=== PATIENT | female | born 1965 | race American Indian/Alaskan Native ===

== ENCOUNTER 2017-04-14 18:51 | Inpatient (IN) | payer BC ==
[2017-04-14] MEDS ORDERED: ACYCLOVIR SODIUM 800 MG in SODIUM CHLORIDE 0.9% 250 ML IVPB ONE (20:45)
--- NOTE | 2017-04-14 20:54 | ED ---
Skin/Abscess/FB HPI - General Chief complaint: Skin/Abscess/Foreign Body Stated complaint: poss shingles Time Seen by Provider: 04/14/17 20:19 Source: patient Mode of arrival: ambulatory Limitations: no limitations - History of Present Illness Initial comments: Patient presents with a burning and itching skin rash. The rash is on the right side of her chest. She has taken no medications. She has no fevers or chills. She has no chest pain or back pain or belly pain. Nothing makes the rash better or worse. She is unaware of sick contacts. She has not traveled anywhere. She has no pain or swelling the legs. She has no palpitations. It has been getting worse for 3 days. - Related Data Home Medications Medication Instructions Recorded Confirmed Folic Acid 1 mg PO HS 11/18/14 04/14/17 Methotrexate/Pf [Rasuvo 17.5 17.5 mg SQ WE 11/18/14 04/14/17 mg/0.35 ml Autoinj] Adalimumab [Humira Pen] 40 mg SQ [id number] 04/14/17 04/14/17 Cholecalciferol (Vitamin D3) 2,000 unit PO HS 04/14/17 04/14/17 [Vitamin D3] Ibuprofen [Advil] 200 - 400 mg PO Q6H PRN 04/14/17 04/14/17 Allergies Allergy/AdvReac Type Severity Reaction Status Date / Time etanercept [From Enbrel] Allergy Unknown Verified 04/14/17 20:17 Review of Systems ROS Statement: Those systems with pertinent positive or pertinent negative responses have been documented in the HPI. ROS Other: All systems not noted in ROS Statement are negative. Past Medical History Past Medical History: Rheumatoid Arthritis (RA) History of Any Multi-Drug Resistant Organisms: None Reported Past Surgical History: No Surgical Hx Reported Additional Past Surgical History / Comment(s): Hx-Lupus, Sjogrens, Raynauds Past Psychological History: No Psychological Hx Reported Smoking Status: Former smoker Past Alcohol Use History: None Reported Past Drug Use History: None Reported General Exam Limitations: no limitations General appearance: alert, in no apparent distress Head exam: Present: atraumatic, normocephalic, normal inspection Eye exam: Present: normal appearance, PERRL, EOMI. Absent: scleral icterus, conjunctival injection, periorbital swelling ENT exam: Present: normal exam, mucous membranes moist Neck exam: Present: normal inspection. Absent: tenderness, meningismus, lymphadenopathy Respiratory exam: Present: normal lung sounds bilaterally. Absent: respiratory distress, wheezes, rales, rhonchi, stridor Cardiovascular Exam: Present: regular rate, normal rhythm, normal heart sounds. Absent: systolic murmur, diastolic murmur, rubs, gallop, clicks GI/Abdominal exam: Present: soft, normal bowel sounds. Absent: distended, tenderness, guarding, rebound, rigid Extremities exam: Present: normal inspection, full ROM, normal capillary refill. Absent: tenderness, pedal edema, joint swelling, calf tenderness Back exam: Present: normal inspection Neurological exam: Present: alert, oriented X3, CN II-XII intact Psychiatric exam: Present: normal affect, normal mood Skin exam: Present: warm, dry, intact, normal color, rash Course Vital Signs 04/14/17 04/14/17 20:06 20:27 Temperature 100.6 F H 99.4 F Pulse Rate 94 83 Respiratory 20 18 Rate Blood Pressure 125/65 135/73 O2 Sat by Pulse 100 100 Oximetry Medical Decision Making - Medical Decision Making Patient presents with a rash. Bruce to my examination she has shingles. She has a history of rheumatoid arthritis. She is on immunosuppressive medications. I Do not believe she is appropriate for oral medication. She will require intravenous a cycle here. Therefore she will be admitted to the hospital. Disposition Clinical Impression: Shingles Disposition: ADMITTED IP TO THIS HOSP Condition: Fair Referrals: Harvey Zurita MD [Primary Care Provider] - 1-2 days Time of Disposition: 20:54
[2017-04-14] MEDS ORDERED: traMADol 50 MG TAB PO PRN (20:55)
[2017-04-14] MEDS ORDERED: ONDANSETRON 4 MG/2 ML VIAL IVP PRN (20:55)
[2017-04-14] MEDS ORDERED: MORPHINE SULFATE 4 MG/ML SYRINGE IV PRN (20:55)
[2017-04-14] MEDS ORDERED: NALOXONE 0.4 MG/ML 1 ML VIAL IV PRN (20:55)
[2017-04-14 20:59] LABS: Anisocytosis Slight; Basophils % (A) 1 %; CH 30.1; CHCM 33.5; Eosinophils # (A) 0.3 k/uL (0-0.7); Eosinophils % (A) 6 %; HCT 38.4 % (34.0-46.0); HDW 2.62; HGB 12.5 gm/dL (11.4-16.0); Luc # (Auto) 0.18; Luc % (Auto) 4; Lymphocytes # (A) 0.9 k/uL (1.0-4.8); Lymphocytes % (A) 18 %; MCH 29.6 pg (25.0-35.0); MCHC 32.7 g/dL (31.0-37.0); MCV 90.4 fL (80.0-100.0); Mean Platelet Volume 6.9; Monocytes # (A) 0.5 k/uL (0-1.0); Monocytes % (A) 10 %; Neutrophils # (A) 3.3 k/uL (1.3-7.7); Neutrophils % (A) 63 %; RBC 4.24 m/uL (3.80-5.40); RDW 17.7 % (11.5-15.5); WBC 5.2 k/uL (3.8-10.6); WBC (Perox) 5.66
[2017-04-14 21:11] LABS: ALT 51 U/L (9-52); AST 36 U/L (14-36); Alkaline Phosphatase 58 U/L (38-126); Anion Gap 8 mmol/L; Blood Urea Nitrogen 12 mg/dL (7-17); Calcium 9.3 mg/dL (8.4-10.2); Carbon Dioxide 25 mmol/L (22-30); Chloride 104 mmol/L (98-107); Glucose 88 mg/dL (74-99); Non-African American GFR(MDRD) >60 (>60 ml/min/1.73 sqM); Potassium 4.2 mmol/L (3.5-5.1); Sodium 137 mmol/L (137-145); Total Bilirubin 0.4 mg/dL (0.2-1.3)
[2017-04-14] MEDS ORDERED: SODIUM CHLORIDE 0.9% 500 ML IV ONE (21:21)
[2017-04-15] MEDS: CHOLECALCIFEROL 1,000 UNIT TAB PO SCH ×2 (00:52→20:07)
[2017-04-15] MEDS: FOLIC ACID 1 MG TAB PO SCH ×2 (00:52→20:08)
[2017-04-15] MEDS: FAMOTIDINE 20 MG TAB PO SCH ×4 (00:53→20:08)
[2017-04-15] MEDS: KETOROLAC 30 MG/ML 1 ML VIAL IVP PRN ×3 (00:54→13:39)
[2017-04-15] MEDS: ACYCLOVIR SODIUM 800 MG in SODIUM CHLORIDE 0.9% 250 ML IV SCH ×3 (08:54→23:07)
[2017-04-15] MEDS: ENOXAPARIN 40 MG/0.4 ML SYRINGE SQ SCH (09:09)
--- NOTE | 2017-04-15 17:18 | HP ---
HISTORY AND PHYSICAL DATE OF ADMISSION: 04/14/2017. PRESENTING COMPLAINT: Pain in the right side. DATE OF SERVICE: 04/15/2017 HISTORY OF PRESENTING COMPLAINT: Pleasant 52-year-old patient, Dr. Zurita. Chronic stable medical conditions include rheumatoid arthritis, Sjogren syndrome, Raynaud and interstitial lung disease. The patient follows with , branch service specialist out of the area. The patient was camping and 4 days ago noticed some pain at the bra line on the lower surface going across starting in the right lower back and continued to get worse. Presented to the local urgent care and found rash there compatible with herpes zoster. Because the patient's immunosuppressed state patient was sent in to the hospital to get IV antiviral and further treatment. The patient denies any fever. Pain is present. Small vesicles were present when she came. REVIEW OF SYSTEMS: CONSTITUTIONAL: None. HEENT: None. RESPIRATORY: None. CARDIOVASCULAR: None. GASTROINTESTINAL: None. GENITOURINARY: None. MUSCULOSKELETAL: As above. DERMATOLOGICAL: As above. LYMPHATIC: None. PSYCHIATRY: None. NEUROLOGICAL: None. PAST HISTORY: Rheumatoid arthritis, Sjogren syndrome, Raynaud disease, interstitial lung disease. PAST SURGICAL HISTORY: , bronchoscopy with biopsies, cervical surgery for precancer, VAT for right lower lobe wedge resection, sinus surgery, x1. SOCIAL HISTORY: . The patient smoked for 20 years. Stopped in 2004. Alcohol none. FAMILY HISTORY: Diabetes and father had some heart disease. HOME MEDICATIONS: 1. Progesterone 800 mg q.h.s. 2. Estrace 0.5 mg p.o. q.h.s. 3. Rasuvo 17.5 mg subcu on Friday. 4. Advil 200 to 400 q.6h p.r.n. 5. Folic acid 1 mg q.h.s. 6. Vitamin D3 2000 units q.h.s. 7. Humira 40 mg subcu 14 days. ALLERGIES: ENBREL. PHYSICAL EXAMINATION: Temperature 97.4, pulse 79, respirations 16, blood pressure 108/58, pulse ox 99% on room air. GENERAL APPEARANCE: Average built, BMI 33.1. Sitting up. Not in distress. EYES: Pupils equal. Conjunctivae normal. HEENT: Oral cavity normal. NECK: JVD not raised. Mass not palpable. RESPIRATORY: Effort. Lungs are clear. CARDIOVASCULAR: First and second sounds are normal. No edema. ABDOMEN: Soft, nontender. Liver and spleen not palpable. LYMPHATIC: No lymph nodes palpable in the neck or axillae. PSYCHIATRY: Alert and oriented x3. Mood and affect normal. NEUROLOGICAL: Pupils appear grossly intact. Power and sensation grossly intact. DERMATOLOGICAL: In a linear fashion a rash is present going from the mid back to the front with some areas of drying out vesicles and some areas of healing up present. Local tenderness is present. INVESTIGATIONS: White count 5.2, hemoglobin 12.5, potassium 4.2, BUN and creatinine normal. ASSESSMENT: 1. Acute herpes zoster in a patient who gets immunosuppressants. Because of concern of immunosuppressed state the patient admitted to the hospital to get IV antiviral. 2. Chronic rheumatoid arthritis. 3. Chronic Sjogren syndrome. 4. Raynaud phenomenon. 5. Chronic interstitial lung disease. PLAN: Home medications will be resumed. Will hold off patient's methotrexate for now. Will give at least 24 hours of IV antiviral and see how the patient does and take it from there. Care was discussed with patient. MMODL / IJN: [id number] /
[2017-04-15] MEDS ORDERED: ESTRADIOL 0.5 MG TAB PO SCH (21:00)
[2017-04-15] MEDS ORDERED: PROGESTERONE MICRONIZED 100 MG PO SCH (21:00)
[2017-04-16] MEDS: ACYCLOVIR SODIUM 800 MG in SODIUM CHLORIDE 0.9% 250 ML IV SCH ×2 (05:15→14:37)
[2017-04-16 07:26] VITALS: TEMP 98.7
[2017-04-16] MEDS: ENOXAPARIN 40 MG/0.4 ML SYRINGE SQ SCH (08:25)
[2017-04-16] MEDS: FAMOTIDINE 20 MG TAB PO SCH (08:25)
[2017-04-16 09:00] VITALS: PULSE 88
[2017-04-16] MEDS: KETOROLAC 30 MG/ML 1 ML VIAL IVP PRN (14:09)
[2017-04-16 15:17] VITALS: BP 100/58; RESP 17
--- NOTE | 2017-04-16 19:21 | P.DS ---
Providers Date of admission: 04/14/17 20:55 Expected date of discharge: 04/16/17 Attending physician: Servando Patel Primary care physician: [facility] Course: FINAL DIAGNOSES: -Acute herpes zoster in a patient who gets immunosuppressants -Chronic rheumatoid arthritis. -Chronic Sjogren syndrome -Renal phenomenon. -Chronic interstitial lung disease. HOSPTIAL COURSE: 52-year-old patient who presented to the emergency department after she noticed 4 days ago some pain at her bra line going across her lower back and continue to get worse. Presented to urgent care and rash was found to be compatible with herpes zoster. Patient takes immunosuppressants and was sent to the emergency department for further evaluation and treatment. IV acyclovir initiated and immunosuppressants held. Symptoms improved, patient tolerating her diet, ambulatory in the room and corea ways, last BM prior to admission. Overall patient condition stabilized and is appropriate for discharge. Patient should follow-up with Dr. Shields to restart her methotrexate and Humira. PHYSICAL EXAM: CARDIOVASCULAR: First and second sound noted no edema RESPIRATORY: Respiratory effort normal, lungs clear to auscultation DERMATOLOGIC: Rash is present in a linear fashion growing from the mid back to the front with some areas of drying vesicles and some areas healing up. Local tenderness noted. Patient was seen and examined by nurse practitioner Annemarie Franco in all elements of the case discussed with attending Dr. Patel DISPOSITION: Home to the care of her family. Patient Condition at Discharge: Fair Plan - Discharge Summary New Discharge Prescriptions: New valACYclovir HCL [Valtrex] 1,000 mg PO Q8HR #21 tab Continue Folic Acid 1 mg PO HS Methotrexate/Pf [Rasuvo 17.5 mg/0.35 ml Autoinj] 17.5 mg SQ WE Cholecalciferol (Vitamin D3) [Vitamin D3] 2,000 unit PO HS Adalimumab [Humira Pen] 40 mg SQ [id number] Ibuprofen [Advil] 200 - 400 mg PO Q6H PRN PRN Reason: HEADACHE/PAIN Progesterone, Micronized [Progesterone] 100 mg PO HS Estradiol [Estrace] 0.5 mg PO HS Discharge Medication List Folic Acid 1 mg PO HS 11/18/14 [History] Methotrexate/Pf [Rasuvo 17.5 mg/0.35 ml Autoinj] 17.5 mg SQ WE 11/18/14 [History ] Adalimumab [Humira Pen] 40 mg SQ [id number] 04/14/17 [History] Cholecalciferol (Vitamin D3) [Vitamin D3] 2,000 unit PO HS 04/14/17 [History] Ibuprofen [Advil] 200 - 400 mg PO Q6H PRN 04/14/17 [History] Estradiol [Estrace] 0.5 mg PO HS 04/15/17 [History] Progesterone, Micronized [Progesterone] 100 mg PO HS 04/15/17 [History] valACYclovir HCL [Valtrex] 1,000 mg PO Q8HR #21 tab 04/16/17 [Rx] Follow up Appointment(s)/Referral(s): Harvey Zurita MD [Primary Care Provider] - 04/23/17 12:40 pm Clementine Mayo MD [REFERRING] - 04/24/17 1:00 pm Patient Instructions/Handouts: Valacyclovir (By mouth), Shingles (DC) Activity/Diet/Wound Care/Special Instructions: 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 mayo to check about her methotrexare and humira Discharge Disposition: HOME SELF-CARE
[2017-04-16] MEDS ORDERED: METHOTREXATE SQ SCH (20:57)
--- NOTE | 2017-04-16 23:32 | DS ---
DISCHARGE SUMMARY ATTENDING NOTE: This patient was seen and examined by me. I discussed with my nurse practitioner, Ms. Franco. The patient's herpes zoster on the right side of the abdominal wall is improving. The patient initially received IV acyclovir. No systemic manifestations. Pain is well controlled. Care was discussed with the patient. PHYSICAL EXAMINATION: On examination, the lesions are healing well. they already started drying up. The patient will be discharged home on Valtrex. 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 Care was discussed in detail. MMODL / IJN: [id number] /
[2017-04-28] MEDS ORDERED: ADALIMUMAB 80 MG/1.6 ML KIT SQ SCH (09:00)
== END 2017-04-16 17:40 | disposition home or self-care (01) | DRG 596 ==
LOC: EC 18:51 → 4MS4W 20:55 → 5MS5E 04-15 13:23
PROVIDERS: ADMIT Hospitalist; ATTEND Hospitalist
DX: B02.9 Zoster without complications (principal); J84.9 Interstitial pulmonary disease, unspecified; I73.00 Raynaud's syndrome without gangrene; M06.9 Rheumatoid arthritis, unspecified; M35.00 Sjogren syndrome, unspecified; Z83.3 Family history of diabetes mellitus; Z87.891 Personal history of nicotine dependence; Z79.890 Hormone replacement therapy; Z79.899 Other long term (current) drug therapy
CPT/HCPCS: 36415; 80053; 85025; 87040; 96365; 96366; 96372; 96375; 99284

== ENCOUNTER → 2019-03-08 | Outpatient (CLI) | payer BC ==
--- NOTE | 2019-03-09 11:19 | MM ---
Reason for exam: screening (asymptomatic). Last mammogram was performed 3 years ago. History: Patient is postmenopausal. Family history of premenopausal breast cancer in mother. Physical Findings: A clinical breast exam by your physician is recommended on an annual basis and results should be correlated with mammographic findings. MG 3D Screening Mammo W/Cad Bilateral CC and MLO view(s) were taken. Prior study comparison: February 26, 2016, bilateral MG screening mammo w CAD. October 02, 2011, bilateral digital screening mammo w/CAD. The breast tissue is heterogeneously dense. This may lower the sensitivity of mammography. Finding: There are amorphous, grouped/clustered calcifications in the upper outer quadrant, posterior middle position of the right breast. There is no discrete abnormality. New finding since February 26, 2016. ASSESSMENT: Incomplete: need additional imaging evaluation, BI-RAD 0 RECOMMENDATION: Special view mammogram of the right breast. [facility] will attempt to contact patient to return for supplemental views.
== END | disposition home or self-care (01) ==
LOC: RADMAMWWP 15:28
PROVIDERS: ATTEND Obstetrics & Gynecology
DX: Z12.31 Encounter for screening mammogram for malignant neoplasm of breast (principal)
CPT/HCPCS: 77063; 77067

== ENCOUNTER → 2019-03-17 | Outpatient (CLI) | payer BC ==
--- NOTE | 2019-03-17 14:44 | MM ---
Reason for exam: additional evaluation requested from abnormal screening. Last mammogram was performed less than 1 month ago. History: Patient is postmenopausal. Family history of premenopausal breast cancer in mother at age 50. Taking estrogen beginning at age 52. Physical Findings: Nurse did not find any significant physical abnormalities on exam. MG 3D Work Up W/Cad RT CC with magnification, MLO with magnification, and LM view(s) were taken of the right breast. Prior study comparison: March 08, 2019, bilateral MG 3d screening mammo w/cad. February 26, 2016, bilateral MG screening mammo w CAD. The breast tissue is heterogeneously dense. This may lower the sensitivity of mammography. Finding: There are coarse heterogeneous, grouped/clustered calcifications in the upper outer quadrant, middle position of the right breast. These results were verbally communicated with the patient and result sheet given to the patient on 03/17/19. ASSESSMENT: Suspicious, BI-RAD 4 RECOMMENDATION: Stereotactic core biopsy of the right breast. Called Dr. Leung with mammographic findings and has scheduled an appointment for the patient for 05/06/19 at 10:[address] Le. Biopsy scheduled for 04/16/19 at 10:20. PRELIMINARY REPORT CALLED AND FAXED TO DR. LE ON 03/17/19.
== END | disposition home or self-care (01) ==
LOC: RADMAMWWP 13:30
PROVIDERS: ATTEND Obstetrics & Gynecology
DX: R92.8 Other abnormal and inconclusive findings on diagnostic imaging of breast (principal)
CPT/HCPCS: 77061; 77065

== ENCOUNTER → 2019-04-16 | Day surgery (SDC) | payer BC ==
[2019-04-16 11:08] VITALS: BMI 31.1
[2019-04-16 14:59] VITALS: BP 120/67; PULSE 77; RESP 16; TEMP 98
--- NOTE | 2019-04-18 13:57 | MM ---
EXAMINATION TYPE: MG stereo VAD BX RT DATE OF EXAM: 04/16/2019 COMPARISON: 03/17/2019 mammogram CLINICAL HISTORY: Abnormal mammogram, calcifications TECHNIQUE: Stereotactic guided core biopsy of right breast. FINDINGS: The procedure of stereotactic guided core biopsy was explained to the patient. Benefits, alternatives, and risks were discussed. An informed consent was then obtained. Timeout was performed Calcifications were localized. Calcifications were targeted by radiology. The procedure was performed by radiology. The skin was cleansed in the standard manner. The skin and deeper breast tissue was anesthetized with 1% lidocaine. Additional lidocaine was administered during the procedure in the standard manner. Multiple core samples were obtained. The graft specimen: Specimen radiograph was obtained. Calcifications are within the specimen. Additionally, there is a soft somewhat clear foreign body which was labeled and also submitted with the specimen. The source of this is unclear. Postprocedure mammogram is obtained. The calcifications have been resected. A marker is at the biopsy site. Discharge instructions were discussed with the patient. The patient will follow- up with her physician for results. The patient was discharged in stable condition having tolerated the procedure well. IMPRESSION: 1. Successful core biopsy right breast calcifications. Recommendations: 1. Recommendations are pending pathology results. Pathology Results: Benign RIGHT, BREAST, NEEDLE CORE BIOPSIES: Benign breast parenchyma with fibrocystic and fibroadenomatoid changes showing coarse intraductal mineralizations. Recommendation Follow up mammogram of the right breast in 6 months. HUSEYIN
== END ==
LOC: RADMAMWWP 10:43
PROVIDERS: ATTEND Surgery
DX: R92.1 Mammographic calcification found on diagnostic imaging of breast (principal); N60.11 Diffuse cystic mastopathy of right breast
CPT/HCPCS: 19081; 88305; A4648; J2001

== ENCOUNTER → 2021-10-26 | Outpatient (CLI) | payer BC ==
--- NOTE | 2021-10-29 13:32 | MM ---
Reason for exam: screening (asymptomatic). Last mammogram was performed 2 years and 7 months ago. History: Patient is postmenopausal. Family history of premenopausal breast cancer in mother at age 50. Benign MG stereo VAD BX RT of the right breast, April 16, 2019. Taking estrogen for 4 years beginning at age 52. Physical Findings: A clinical breast exam by your physician is recommended on an annual basis and results should be correlated with mammographic findings. MG 3D Screening Mammo W/Cad Bilateral CC, MLO, and XCCL view(s) were taken. Prior study comparison: March 17, 2019, right breast MG 3d work up w/cad RT. March 08, 2019, bilateral MG 3d screening mammo w/cad. The breast tissue is heterogeneously dense. This may lower the sensitivity of mammography. Previous mammotome biopsy in the right breast. No significant changes when compared with prior studies. ASSESSMENT: Negative, BI-RAD 1 RECOMMENDATION: Routine screening mammogram of both breasts in 1 year.
== END | disposition home or self-care (01) ==
LOC: RADMAMWWP 08:01
PROVIDERS: ATTEND Obstetrics & Gynecology
DX: Z12.31 Encounter for screening mammogram for malignant neoplasm of breast (principal)
CPT/HCPCS: 77063; 77067

== ENCOUNTER → 2021-11-08 | Outpatient (CLI) | payer BC ==
--- NOTE | 2021-11-11 13:48 | CT ---
EXAMINATION TYPE: CT chest wo con DATE OF EXAM: 11/08/2021 INDICATION: Dyspnea, wheezing, dry cough x [address] DLP: 679.5 mGy.cm Automated Exposure Control for Dose Reduction was Utilized. TECHNIQUE AND CONTRAST: Axial CT scan of the chest in the prone and supine positions as per high-resolution CT scan protocol without IV contrast administration. COMPARISON: No previous CT scan is available for comparison FINDINGS: Mild interstitial lung disease with peripheral pulmonary reticulations, traction bronchiectasis and b ronchiolectasis, as well as minimal groundglass opacities, most evident seen in the mid to lower lung zones. No evidence of honeycombing or cystic changes. Suboptimal assessment for lung nodules. Patent trachea and main bronchi. No pleural or pericardial effusion. The pulmonary trunk measures up to 2.9 cm. Scattered arterial ath erosclerotic calcifications. Questionable cardiomegaly, please correlate with echocardiographic resul ts. Suspected thyroid calcification, for correlation with thyroid ultrasound results. Scattered subcentimeter bilateral axillary lymph nodes. Enlarged precarinal lymph node measuring 15 m m with prominent other mediastinal and suspected hilar lymph nodes. Further elective CT assessment ca n be considered. Questionable left upper renal pole cyst, suboptimally assessed by this CT scan. Susp ected small sliding hiatal hernia. No gross aggressive bone lesion. IMPRESSION: Mild interstitial lung disease as described above, indeterminate for UIP. Possibilities may include c onnective-tissue disorder, fibrotic NSIP, sequela of prior infectious process, among other lung patho logies. Recommend clinical correlation and further workup. Further pulmonology consultation can be co nsidered. Other incidental findings and recommendations as detailed above. A Yellow level critical message alert has been initiated for Rajendra Sutton DO via the [employer] Critical Results System on 11/11/2021 1:46 PM. This message alert has been sent to Rajendra Sutton DO via the preferences provided by the clinician for the receipt of Radiology Critical Findings. [facility] ID [id number].
== END | disposition home or self-care (01) ==
LOC: RADCTMAIN 15:06
PROVIDERS: ATTEND Internal Medicine Critical Care Medicine
DX: J84.9 Interstitial pulmonary disease, unspecified (principal); J84.10 Pulmonary fibrosis, unspecified
CPT/HCPCS: 71250

== ENCOUNTER → 2021-12-31 | Outpatient (CLI) | payer BC ==
[2021-12-31 13:29] LABS: Partial Thromboplastin Time 24.8 sec (22.0-30.0)
[2021-12-31 18:05] LABS: Basophils # (A) 0.04 X 10*3/uL (0.00-0.10); Basophils % (A) 0.7 %; Eosinophils # (A) 0.54 X 10*3/uL (0.04-0.35); Eosinophils % (A) 9.5 %; HCT 42.9 % (37.2-46.3); HGB 13.2 g/dL (12.0-15.0); Immature Grans, Automated 0.2 %; Lymphocytes # (A) 1.83 X 10*3/uL (0.90-5.00); Lymphocytes % (A) 32.3 %; MCH 27.6 pg (27.0-32.0); MCHC 30.8 g/dL (32.0-37.0); MCV 89.6 fL (80.0-97.0); Mean Platelet Volume 10.6 fL (9.5-12.2); Monocytes # (A) 0.45 X 10*3/uL (0.20-1.00); Monocytes % (A) 7.9 %; NRBC Per 100 WBC 0 /100 WBCS (0.0-0.0); Neutrophils % (A) 49.4 %; Platelet Count 265 X 10*3/uL (140-440); RBC 4.79 X 10*6/uL (4.10-5.20); RDW 14.7 % (11.5-14.5); WBC 5.67 X 10*3/uL (4.50-10.00)
[2021-12-31 18:09] LABS: African American GFR (CKD) 85.5 (60.0-200.0); Blood Urea Nitrogen 12.3 mg/dL (9.0-27.0); Carbon Dioxide 26.7 mmol/L (20.0-27.5); Non-African American GFR(CKD) 73.7 (60.0-200.0); Potassium 4.2 mmol/L (3.5-5.5)
[2022-01-01 03:47] LABS: Prothrombin Time 11.1 sec (9.0-12.0)
== END | disposition home or self-care (01) ==
LOC: LABPAT 11:13
PROVIDERS: ATTEND Thoracic Surgery (Cardiothoracic Vascular Surgery)
DX: Z01.812 Encounter for preprocedural laboratory examination (principal); J84.9 Interstitial pulmonary disease, unspecified
CPT/HCPCS: 80051; 82565; 82947; 84520; 85025; 85610; 85730; 93005

== ENCOUNTER 2022-01-10 06:55 | Inpatient (IN) | payer BC ==
[2022-01-10] MEDS ORDERED: LACTATED RINGERS 1,000 ML IV SCH (07:15)
[2022-01-10] MEDS ORDERED: ONDANSETRON 4 MG/2 ML VIAL IVP ONE (07:15)
[2022-01-10] MEDS ORDERED: DEXAMETHASONE SOD PHOSPHATE 4 MG/ML 1 ML VIAL IV ONE (07:15)
[2022-01-10] MEDS ORDERED: MIDAZOLAM 2 MG/2 ML VIAL IVP ONE ×3 (08:45→09:26)
--- NOTE | 2022-01-10 10:15 | P.ANPRN ---
Procedure Note - Anesthesia - Invasive Line Right Arterial Line Time Out Performed: Yes Date of Procedure: 01/10/22 Time of Procedure: 08:52 Location of Patient: PreOp Preparation: Sterile Prep, Sterile Dressing Arterial Line Location: Radial Ultrasound Used: No Purpose - Visualization and Identification of Vasculature: No Image Stored and Saved: Yes Narrative: Central line placement per sterile protocol utilized.
[2022-01-10] MEDS ORDERED: KETAMINE 10 MG/ML 20 ML VIAL ONE (11:08)
[2022-01-10] MEDS ORDERED: SUGAMMADEX SODIUM 500 MG/5 ML SDV IV ONE (11:08)
[2022-01-10] MEDS ORDERED: SUCCINYLCHOLINE CHLORIDE 100 MG/5 ML SYR IV ONE (11:08)
[2022-01-10] MEDS ORDERED: LIDOCAINE 4% LTA KIT (4 ML) TOPICAL ONE (11:08)
[2022-01-10] MEDS ORDERED: PHENYLEPHRINE-0.9% NACL SYG 1,000 MCG/10 ML SYRINGE ONE (11:08)
[2022-01-10] MEDS ORDERED: fentaNYL (PF) 50 MCG/ML 2 ML AMP ONE (11:08)
[2022-01-10] MEDS ORDERED: PROPOFOL 10 MG/ML 20 ML VIAL IV ONE (11:08)
[2022-01-10] MEDS ORDERED: ROCURONIUM 10 MG/ML (5 ML VIAL) IV ONE (11:08)
[2022-01-10] MEDS ORDERED: MIDAZOLAM 2 MG/2 ML VIAL ONE (11:08)
[2022-01-10] MEDS ORDERED: BUPIVACAINE (PF) 0.5% 30 ML VIAL SQ ONE (11:55)
[2022-01-10] MEDS ORDERED: LACTATED RINGERS 1,000 ML IV ONE (12:13)
--- NOTE | 2022-01-10 12:32 | P.OP ---
Date of Procedure: 01/10/22 Preoperative Diagnosis: Shortness of breath, bilateral pulmonary infiltrates Postoperative Diagnosis: Same Procedure(s) Performed: Left thoracoscopic lung biopsy Anesthesia: GETA Surgeon: Jorge Covarrubias Estimated Blood Loss (ml): 10 IV fluids (ml): 600 Pathology: other (Biopsies of left upper lobe, lingula and left lower lobe were all sent for pathology and cultures including aerobic, anaerobic, acid-fast and fungal) Condition: stable Disposition: PACU Indications for Procedure: 56-year-old female with long-standing history of rheumatoid arthritis and previous right lung biopsy many years ago. She presented this time with relatively new onset dyspnea which has been worsening fairly rapidly. CT demonstrates interstitial lung change bilaterally. Biopsy was requested by Dr. Sutton. Operative Findings: Lung compliance was poor. The inferior portions of the lung including the lingula and lower portion of the lower lobe had obvious change including sclerosis and fibrosis. Description of Procedure: The patient was brought to the operating room, placed supine on the operating table, anesthetized and intubated. Double lumen endotracheal tube was placed and positioned appropriately with fiberoptic bronchoscopy. Patient was turned in the right lateral decubitus position and appropriately positioned. The left chest was sterilely prepped and draped. Single lung ventilation was initiated. 3 one-inch incisions were made in the left chest and the video thoracoscope was introduced. Lung findings as noted above. Biopsies of the left lower lobe base, lingula and left upper lobe were obtained with multiple firings of Endo BRAYDON stapler. Specimens were brought out and divided on the back table. Portion of each was sent for culture and the remainder for pathology. 28-Cymro chest t ube was placed through separate stab incision and positioned posterior apically. The lung was inflated under thoracoscopic visualization. Thoracoscope was removed and the incisions were closed with layers of Vicryl suture. Rib blocks were performed at the level of the incisions with half percent Marcaine. Skin glue and Band-Aid dressings were applied to the incisions and a chest tube dressing applied to the chest tube. Patient was turned supine and extubated and transferred to recovery in stable condition.
[2022-01-10] MEDS: HYDROmorphone 0.5 MG/0.5 ML SYRINGE IVP PRN ×2 (13:03→13:20)
[2022-01-10] MEDS ORDERED: HYDROmorphone 0.5 MG/0.5 ML SYRINGE IVP ONE (13:58)
--- NOTE | 2022-01-10 14:02 | XR ---
EXAMINATION TYPE: XR chest 1V portable DATE OF EXAM: 01/10/2022 COMPARISON: 10/25/2021 HISTORY: Postlung biopsy TECHNIQUE: Single frontal view of the chest is obtained. FINDINGS: Left-sided chest tube seen. There is a 5% pneumothorax The left costophrenic angle with subcutaneous edema. Bibasilar consolidation noted. Coarsened interst itium may be related to reduced inspiration. Gastric bubble appears distended. IMPRESSION: 1. Bibasilar atelectasis or infiltrate with probable 5% or less pneumothorax along the lower margin l eft costophrenic angle with a small amount of adjacent subcutaneous emphysema.
[2022-01-10] MEDS ORDERED: DEXTROSE 5%-0.45% NACL 1,000 ML IV SCH (14:38)
[2022-01-10] MEDS ORDERED: ONDANSETRON 4 MG/2 ML VIAL IVP PRN (14:38)
--- NOTE | 2022-01-10 15:30 | P.CNPUL ---
History of Present Illness Consult date: 01/10/22 Requesting physician: Jorge Covarrubias Reason for consult: dyspnea, cough, hypoxemia, pulmonary fibrosis, abnormal CXR/CT Chief complaint: Shortness of breath, nonproductive cough. History of present illness: Pulmonary consult dated 01/10/2022. 56-year-old female well-known to me. The patient has a history of interstitial lung disease, with progressive shortness of breath, and dry nonproductive cough. I sent her to see Dr. Covarrubias for consideration of a VATS lung biopsy. That was done today, on the left side. She returns to room 374, from the recovery area. She is on 2 L nasal cannula. And receiving lactated Ringer's at 50 mL an hour. The patient has a left chest tube, and chest x-ray showed a 5% pneumothorax. 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 For her lung disease, she is on methotrexate, folic acid, and Humira. No new labs today. Chest x-ray shows a left-sided chest tube. A tiny left pneumothorax is present. Review of Systems REVIEW OF SYSTEMS: CONSTITUTIONAL: [Negative.] NEUROLOGIC: [ Negative.] HEENT: [ Negative.] CARDIAC: [Negative.] PULMONARY: Shortness of breath on exertion, and dry nonproductive cough. GI: [Negative.] : [Negative.] RHEUMATOLOGIC: [ Negative.] IMMUNOLOGIC: [ Negative.] ENDOCRINE: [Negative. ] DERMATOLOGIC: [Negative.] Past Medical History Past Medical History: Rheumatoid Arthritis (RA) Additional Past Medical History / Comment(s): Sjogren's, raynauds bilateral feet/hands and nose, interstitial lung disease, SOB w/exertion History of Any Multi-Drug Resistant Organisms: None Reported Past Surgical History: Section Additional Past Surgical History / Comment(s): bronchoscopy with bx, cervical wall surgery for pre-cancer, VAT with R lower lobe wedge resection, sinus surgery, x1, colonoscopy-normal. Past Anesthesia/Blood Transfusion Reactions: No Reported Reaction Smoking Status: Former smoker - Past Family History Father Family Medical History: Diabetes Mellitus Additional Family Medical History / Comment(s): Father is 70yrs old and has some "heart problems." Mother Family Medical History: Cancer Additional Family Medical History / Comment(s): Mother of breast cancer at the age of 52yrs. Medications and Allergies Home Medications Medication Instructions Recorded Confirmed Type Folic Acid 1 mg PO HS 11/18/14 01/10/22 History Adalimumab [Humira Pen] 40 mg SQ [id number] 04/14/17 01/10/22 History Cholecalciferol (Vitamin D3) 2,000 unit PO HS 04/14/17 01/10/22 History [Vitamin D3] Ibuprofen [Advil] 200 - 400 mg PO Q6H PRN 04/14/17 01/10/22 History Progesterone, Micronized 100 mg PO HS 04/15/17 01/10/22 History [Progesterone] estradioL [Estrace] 0.5 mg PO HS 04/15/17 01/10/22 History Albuterol Inhaler [Ventolin Hfa 2 puff INHALATION RT-QID PRN 01/08/22 01/10/22 History Inhaler] metHOTREXate sodium [Methotrexate] 12.5 mg PO WE 01/08/22 01/10/22 History Allergies Allergy/AdvReac Type Severity Reaction Status Date / Time No Known Allergies Allergy Verified 01/10/22 07:16 Physical Exam Osteopathic Statement: *. No significant issues noted on an osteopathic structural exam other than those noted in the History and Physical/Consult. Vitals: Vital Signs Temp Pulse Pulse Resp BP BP Pulse Ox 01/10/22 14:30 64 18 150/78 97 01/10/22 14:15 62 16 167/81 94 L 01/10/22 14:00 61 17 155/71 99 01/10/22 13:45 59 L 17 178/77 99 01/10/22 13:30 60 17 181/77 99 01/10/22 13:15 56 L 14 179/83 174/76 100 01/10/22 13:01 62 14 163/80 157/78 100 01/10/22 12:45 67 14 164/84 165/80 100 01/10/22 12:29 97.1 F L 65 14 158/80 100 01/10/22 09:38 78 16 112/61 96 01/10/22 07:25 97.9 F 87 16 132/74 96 Intake and Output 01/10/22 01/10/22 01/10/22 06:59 14:59 22:59 Intake Total 1150 Output Total 10 Balance 1140 Intake: IV 1150 Output: Estimated Blood Loss 10 Other: Weight 77.5 kg No acute distress, very sleepy, with nasal O2 in place. No conversational dyspnea or use of accessory muscles. HEENT examination is grossly unremarkable. Neck supple. Full range of motion. No adenopathy thyromegaly or neck vein distention. Cardiovascular examination reveals regular rhythm rate. S1-S2 normal. No S3 or S4. No discernible murmur noted. Heart rate 64 bpm. Lungs reveal diminished breath sounds throughout. She does not take deep breaths because of the recent surgery. Bibasilar crackles are noted. Mild rhonchi are appreciated. No wheezes. 2 L saturation is 97%. Abdomen soft bowel sounds are heard. No masses or tenderness. Extremities are intact. No cyanosis clubbing or edema. Skin is without rash or lesion. Neurologic examination is brief but nonfocal. Results - Diagnostic Findings Chest x-ray: image reviewed Assessment and Plan Assessment: Postop day #0, status post left video-assisted thoracoscopic lung biopsy, for interstitial lung disease/pulmonary fibrosis. History of rheumatoid arthritis, rule out rheumatoid arthritis associated interstitial lung disease. Prior history of right-sided lung biopsy. Plan: Plan dated 01/10/2022. The patient is seen in room 374. She seems to be resting relatively comfortably but she is very sleepy and somnolent from the recent surgery. The chest x-rays reviewed. The patient will likely be discharged in the next 24 hours. Left- sided chest tube is noted. A small pneumothorax is appreciated. The patient will follow with me in the office. Prognosis is guarded. Time with Patient: Greater than 30
[2022-01-10] MEDS ORDERED: METOCLOPRAMIDE 5 MG/ML 2 ML VIAL IVP STA (16:06)
[2022-01-10] MEDS: KETOROLAC 15 MG/ML 1 ML VIAL IVP SCH ×2 (17:30→20:45)
[2022-01-10] MEDS: traMADol 50 MG TAB PO SCH ×2 (17:56→23:04)
[2022-01-10] MEDS: HEPARIN SODIUM,PORCINE/PF 5,000 UNIT/0.5 ML SYRINGE SQ SCH ×2 (18:23→23:10)
--- NOTE | 2022-01-10 20:15 | P.ANPRN ---
Procedure Note - Anesthesia - Nerve Block Performed Left Erector Spinae Single Time Out Performed: Yes Date of Procedure: 01/10/22 Procedure Start Time: Procedure Stop Time: Location of Patient: PreOp Indication: Acute Post-Operative Pain, Requested by Surgeon Sedation Type: Sedate with meaningful contact maintained Preparation: Sterile Prep Position: Prone Needle Types: Pajunk Needle Gauge: 21 Ultrasound used to visualize needle placement: Yes Ultrasound used to observe medication spread: Yes Blood Aspirated: No Pain Paresthesia on Injection Noted: No Resistance on Injection: Normal Image Stored and Saved: Yes Events: Uneventful and Well Tolerated (ropi .5% 20cc plus dexamethasone 4mg plus ns 10cc at T6)
[2022-01-10] MEDS: CHOLECALCIFEROL 25 MCG (1000 IU) TABLET PO SCH (20:46)
[2022-01-10] MEDS: FOLIC ACID 1 MG TAB PO SCH (20:46)
[2022-01-10] MEDS: NON FORMULARY DRUG (Progesterone, Micronized [Progesterone] 100 MG Capsule) PO SCH (20:49)
[2022-01-11] MEDS: KETOROLAC 15 MG/ML 1 ML VIAL IVP SCH ×4 (03:01→20:21)
[2022-01-11 06:08] LABS: Basophils % (A) 0 %; Eosinophils % (A) 0 %; HCT 28.4 % (34.0-46.0); HGB 9.1 gm/dL (11.4-16.0); Hypochromasia Slight; Lymphocytes # (A) 1.1 k/uL (1.0-4.8); Lymphocytes % (A) 15 %; MCH 29.3 pg (25.0-35.0); MCHC 32.3 g/dL (31.0-37.0); MCV 90.9 fL (80.0-100.0); Mean Platelet Volume 7.3; Monocytes # (A) 0.6 k/uL (0-1.0); Monocytes % (A) 8 %; Neutrophils # (A) 5.4 k/uL (1.3-7.7); Neutrophils % (A) 75 %; Platelet Count 268 k/uL (150-450); RBC 3.12 m/uL (3.80-5.40); WBC 7.2 k/uL (3.8-10.6)
[2022-01-11 06:16] LABS: Calcium 8.2 mg/dL (8.4-10.2); Potassium 4.7 mmol/L (3.5-5.1)
[2022-01-11] MEDS: PANTOPRAZOLE 40 MG TABLET PO SCH (06:34)
[2022-01-11] MEDS: traMADol 50 MG TAB PO SCH (06:34)
[2022-01-11] MEDS ORDERED: HYDROmorphone 0.5 MG/0.5 ML SYRINGE IVP PRN (07:49)
--- NOTE | 2022-01-11 08:28 | XR ---
EXAMINATION TYPE: XR chest 1V DATE OF EXAM: 01/11/2022 COMPARISON: Chest x-ray 01/10/2022 HISTORY: Status post lung biopsy TECHNIQUE: Single frontal view of the chest is obtained. FINDINGS: Left-sided chest tube remains in place. No sizable pneumothorax. Subcutaneous emphysema is present. Lung volumes are low and the patient is rotated. Patchy basilar density persists. Cardiac m ediastinal silhouette is stable. There are overlying artifacts. Distention is increased. IMPRESSION: No significant interval change. Expiratory rotated exam, probable basilar atelectasis, p atient with known underlying lung disease.
[2022-01-11] MEDS: HEPARIN SODIUM,PORCINE/PF 5,000 UNIT/0.5 ML SYRINGE SQ SCH ×3 (08:49→23:29)
--- NOTE | 2022-01-11 09:42 | P.PN ---
Subjective Progress Note Date: 01/11/22 Principal diagnosis: Shortness of breath, bilateral pulmonary infiltrates. Past medical history of interstitial lung disease/pulmonary fibrosis, rheumatoid arthritis POD #1 left thoracoscopic lung biopsy The patient was seen and examined the spring sitting up in bed on the cardiac stepdown unit. She does complain of pain and her chest tube site. Remains in sinus rhythm and hemodynamically stable. Oxygenating well on 2 L nasal cannula. Left pleural chest tube present to continuous wall suction, 310 mL bloody drainage overnight, 1300 mL since surgery, no air leak is present. In addition the patient did develop a hematoma at one of the thoracoscopy insertion sites ye sterday postoperatively, it was outlined and remains unchanged this morning. Objective - Vital Signs Vital signs: Vital Signs Temp 98.1 F 01/11/22 03:40 Pulse 88 01/11/22 03:40 Resp 16 01/11/22 03:40 BP 106/58 01/11/22 03:40 Pulse Ox 99 01/11/22 03:40 FiO2 Intake & Output 01/10/22 01/11/22 01/11/22 18:59 06:59 18:59 Intake Total 1150 Output Total 630 310 Balance 520 -310 Weight 77.5 kg Intake: IV 1150 Output: Chest Tube Drainage 620 310 Chest Tube Left Upper 620 310 Lateral Chest Estimated Blood Loss 10 Other: # Voids 1 - Exam CONSTITUTIONAL: Appears comfortable, cooperative, no acute distress RESPIRATORY: Lungs sounds diminished bilaterally. Respirations even, nonlabore d. Currently on 2 L nasal cannula with oxygen saturation 99%. Weak cough. CARDIOVASCULAR: S1, S2 present. Regular rate and rhythm, sinus rhythm on telemetry. Palpable peripheral pulses bilaterally. No edema present. No calf pain or tenderness noted. SCDs present. GASTROINTESTINAL: Abdomen soft, nontender, nondistended. Active bowel sounds present 4 quadrants. Tolerating diet. GENITOURINARY: Continues to void INTEGUMENTARY: Skin is warm and dry with evidence of good perfusion. Thoracic incision well approximated and covered with dry intact dressing. Thoracoscopy site hematoma outlined, no increase in growth NEUROLOGIC: Cranial nerves II through XII intact MUSKULOSKELETAL: Able to move all extremities, strength equal bilaterally PSYCHIATRIC: Alert and oriented to person place and time, appropriate affect, intact judgment and insight INVASIVE LINES AND TUBES: Left pleural chest tubes present and connected to wall suction, no air leaks present, 300 mL sanguineous drainage overnight, 1300 mL since surgery. - Allied health notes Allied health notes reviewed: nursing - Labs CBC & Chem 7: 01/11/22 05:42 01/11/22 05:42 Labs: Abnormal Lab Results - Last 24 Hours (Table) 01/11/22 01/11/22 Range/Units 05:42 05:42 RBC 3.12 L (3.80-5.40) m/uL Hgb 9.1 L (11.4-16.0) gm/dL Hct 28.4 L (34.0-46.0) % BUN 21 H (7-17) mg/dL Creatinine 1.14 H (0.52-1.04) mg/dL Glucose 162 H (74-99) mg/dL Calcium 8.2 L (8.4-10.2) mg/dL Microbiology - Last 24 Hours (Table) 01/10/22 12:05 Gram Stain - Preliminary Lung - Left Lower Lobe Tissue Culture - Preliminary 01/10/22 12:05 Gram Stain - Preliminary Lung - Left Tissue Culture - Preliminary 01/10/22 12:05 Gram Stain - Preliminary Lung - Left Upper Lobe Tissue Culture - Preliminary 01/10/22 12:05 Anaerobic Culture - Preliminary Lung - Left Lower Lobe 01/10/22 12:05 Anaerobic Culture - Preliminary Lung - Left Upper Lobe 01/10/22 12:05 Fungal Culture - Preliminary Lung - Left 01/10/22 12:05 Acid Fast Bacilli Culture - Preliminary Lung - Left Upper Lobe 01/10/22 12:05 Acid Fast Bacilli Culture - Preliminary Lung - Left Lower Lobe 01/10/22 12:05 Fungal Culture - Preliminary Lung - Left Upper Lobe 01/10/22 12:05 Fungal Culture - Preliminary Lung - Left Lower Lobe 01/10/22 12:05 Anaerobic Culture - Preliminary Lung - Left 01/10/22 12:05 Acid Fast Bacilli Culture - Preliminary Lung - Left - Imaging and Cardiology Chest x-ray: report reviewed, image reviewed Assessment and Plan Assessment: 1. Shortness of breath, bilateral pulmonary infiltrates, status post left thoracoscopic lung biopsy 2. History of interstitial lung disease/pulmonary fibrosis 3. Rheumatoid arthritis Plan: 1. Left pleural chest tube placed to waterseal. Will monitor output 2. Wean O2 as tolerated. Incentive spirometry ordered and should be encouraged. 3. Increase activity as tolerated. Patient should be out of bed most of the day and for all meals 4. Pain control per current medication regimen 5. Will monitor daily labs and x-rays 6. GI/DVT prophylaxis 7. Continue home medications 8. More recommendations to follow
--- NOTE | 2022-01-11 12:16 | P.PN ---
Subjective Progress Note Date: 01/11/22 Principal diagnosis: Interstitial lung disease. Pulmonary consult dated 01/10/2022. 56-year-old female well-known to me. The patient has a history of interstitial lung disease, with progressive shortness of breath, and dry nonproductive cough. I sent her to see Dr. Covarrubias for consideration of a VATS lung biopsy. That was done today, on the left side. She returns to room 374, from the recovery area. She is on 2 L nasal cannula. And receiving lactated Ringer's at 50 mL an hour. The patient has a left chest tube, and chest x-ray showed a 5% pneumothorax. 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 For her lung disease, she is on methotrexate, folic acid, and Humira. No new labs today. Chest x-ray shows a left-sided chest tube. A tiny left pneumothorax is present. Progress note dated 01/11/2022. This patient is postop day #1, status post lung biopsy, left lung, for interstitial lung disease. The patient's doing relatively well, although, she is complaining of lots of chest pain. Laboratory data today includes a white count 7.2, hemoglobin 9.1, hematocrit 28.4, and platelet count 268,000. Sodium, potassium, chloride, and CO2 are all normal. Anion gap is normal. BUN 21 and creatinine 1.14. Chest x-ray shows a left sided chest tube, and some atelectasis and low lung volumes. Objective - Vital Signs Vital signs: Vital Signs Temp 98.2 F 01/11/22 08:00 Pulse 86 01/11/22 08:00 Resp 14 01/11/22 08:00 BP 110/60 01/11/22 08:00 Pulse Ox 100 01/11/22 08:00 FiO2 Intake & Output 01/10/22 01/11/22 01/11/22 18:59 06:59 18:59 Intake Total 1150 Output Total 630 310 Balance 520 -310 Weight 77.5 kg Intake: IV 1150 Output: Chest Tube Drainage 620 310 Chest Tube Left Upper 620 310 Lateral Chest Estimated Blood Loss 10 Other: # Voids 1 - Exam No acute distress, much more awake, with nasal O2 in place. No conversational dyspnea or use of accessory muscles. HEENT examination is grossly unremarkable. Neck supple. Full range of motion. No adenopathy thyromegaly or neck vein distention. Cardiovascular examination reveals regular rhythm rate. S1-S2 normal. No S3 or S4. No discernible murmur noted. Heart rate 86 bpm. Lungs reveal diminished breath sounds throughout. She does not take deep breaths because of the recent surgery. Bibasilar crackles are noted. Mild rhonchi are appreciated. No wheezes. 2 L saturation is 100 %. A left sided chest tube is noted. Abdomen soft bowel sounds are heard. No masses or tenderness. Extremities are intact. No cyanosis clubbing or edema. Skin is without rash or lesion. Neurologic examination is brief but nonfocal. - Labs CBC & Chem 7: 01/11/22 05:42 01/11/22 05:42 Labs: Abnormal Lab Results - Last 24 Hours (Table) 01/11/22 01/11/22 Range/Units 05:42 05:42 RBC 3.12 L (3.80-5.40) m/uL Hgb 9.1 L (11.4-16.0) gm/dL Hct 28.4 L (34.0-46.0) % BUN 21 H (7-17) mg/dL Creatinine 1.14 H (0.52-1.04) mg/dL Glucose 162 H (74-99) mg/dL Calcium 8.2 L (8.4-10.2) mg/dL Microbiology - Last 24 Hours (Table) 01/10/22 12:05 Gram Stain - Preliminary Lung - Left Lower Lobe Tissue Culture - Preliminary 01/10/22 12:05 Gram Stain - Preliminary Lung - Left Upper Lobe Tissue Culture - Preliminary 01/10/22 12:05 Gram Stain - Preliminary Lung - Left Tissue Culture - Preliminary 01/10/22 12:05 Anaerobic Culture - Preliminary Lung - Left Lower Lobe 01/10/22 12:05 Anaerobic Culture - Preliminary Lung - Left Upper Lobe 01/10/22 12:05 Fungal Culture - Preliminary Lung - Left 01/10/22 12:05 Acid Fast Bacilli Culture - Preliminary Lung - Left Upper Lobe 01/10/22 12:05 Acid Fast Bacilli Culture - Preliminary Lung - Left Lower Lobe 01/10/22 12:05 Fungal Culture - Preliminary Lung - Left Upper Lobe 01/10/22 12:05 Fungal Culture - Preliminary Lung - Left Lower Lobe 01/10/22 12:05 Anaerobic Culture - Preliminary Lung - Left 01/10/22 12:05 Acid Fast Bacilli Culture - Preliminary Lung - Left Assessment and Plan Assessment: Postop day #1, status post left video-assisted thoracoscopic lung biopsy, for interstitial lung disease/pulmonary fibrosis. History of rheumatoid arthritis, rule out rheumatoid arthritis associated interstitial lung disease. Prior history of right-sided lung biopsy. Plan: Plan dated 01/10/2022. The patient is seen in room 374. She seems to be resting relatively comfortably but she is very sleepy and somnolent from the recent surgery. The chest x-rays reviewed. The patient will likely be discharged in the next 24 hours. Left- sided chest tube is noted. A small pneumothorax is appreciated. The patient will follow with me in the office. Prognosis is guarded. Plan dated 01/11/2022. We recommend the patient deep breathe, cough, and clear secretions. In addition, the patient should use the incentive spirometer every hour while awake. I explained to the patient, maybe 10-14 days before we have the final biopsy results. Typically, the biopsies are interpreted here, and sent to [facility], for their impression. Additional recommendations and suggestions are forthcoming. Prognosis is guarded. Time with Patient: Less than 30
[2022-01-11] MEDS: traMADol 50 MG TAB PO PRN ×2 (16:19→23:31)
[2022-01-11] MEDS: CHOLECALCIFEROL 25 MCG (1000 IU) TABLET PO SCH (20:22)
[2022-01-11] MEDS: FOLIC ACID 1 MG TAB PO SCH (20:22)
[2022-01-12] MEDS: NON FORMULARY DRUG (Progesterone, Micronized [Progesterone] 100 MG Capsule) PO SCH (01:19)
[2022-01-12] MEDS: KETOROLAC 15 MG/ML 1 ML VIAL IVP SCH (06:55)
[2022-01-12] MEDS: PANTOPRAZOLE 40 MG TABLET PO SCH (06:56)
--- NOTE | 2022-01-12 07:26 | XR ---
EXAMINATION TYPE: XR chest 1V portable DATE OF EXAM: 01/12/2022 HISTORY: Shortness of breath. COMPARISON: 01/11/2022 TECHNIQUE: Single view of the chest is submitted. FINDINGS: Left-sided chest tube is unchanged in position. No evidence for pneumothorax. Subcutaneous air persis ts although has improved. Persistent left basilar pleural-parenchymal density. The right lung is daniel r. The heart is stable. Hilar and mediastinal structures are within normal limits. Degenerative changes are seen of the dorsal spine. IMPRESSION: 1. Left-sided chest tube is unchanged in position. No evidence for pneumothorax. Subcutaneous air pe rsists although has improved. Persistent left basilar pleural-parenchymal density.
--- NOTE | 2022-01-12 08:14 | P.PN ---
Subjective Progress Note Date: 01/12/22 Principal diagnosis: Shortness of breath, bilateral pulmonary infiltrates. Past medical history of interstitial lung disease/pulmonary fibrosis, rheumatoid arthritis POD #2 left thoracoscopic lung biopsy The patient was seen and examined the spring sitting up in bed on the cardiac stepdown unit. She does complain of pain and her chest tube site. Currently sinus tach with heart rate in the low 100s, soft blood pressure with systolic blood pressure in the 90s. Patient does complain of dizziness when getting up to ambulate. Oxygenating well on 2 L nasal cannula. Left pleural chest tube present to waterseal, 400 mL serosanguineous drainage in the last 24 hours, no air leak is present. Hematoma appears smaller. Patient states she feels a bit more alert than yesterday. Hemoglobin 7.0, was 9.1 yesterday. Objective - Vital Signs Vital signs: Vital Signs Temp 98.9 F 01/12/22 04:00 Pulse 118 H 01/12/22 04:00 Resp 16 01/12/22 04:00 BP 95/57 01/12/22 04:00 Pulse Ox 96 01/12/22 04:00 FiO2 Intake & Output 01/11/22 01/12/22 01/12/22 18:59 06:59 18:59 Output Total 330 Balance -330 Output: Drainage 330 Left Chest 330 Other: # Voids 1 - Exam CONSTITUTIONAL: Appears comfortable, cooperative, no acute distress RESPIRATORY: Lungs sounds diminished bilaterally. Respirations even, nonlabored. Currently on 2 L nasal cannula with oxygen saturation 96%. Weak cough. CARDIOVASCULAR: S1, S2 present. Tachycardia but regular regular rate and rhythm, sinus tach on telemetry. Palpable peripheral pulses bilaterally. No edema present. No calf pain or tenderness noted. SCDs present. GASTROINTESTINAL: Abdomen soft, nontender, nondistended. Active bowel sounds present 4 quadrants. Tolerating diet. GENITOURINARY: Continues to void INTEGUMENTARY: Skin is warm and dry with evidence of good perfusion. Thoracic incision well approximated and covered with dry intact dressing. Thoracoscopy site hematoma outlined, smaller today NEUROLOGIC: Cranial nerves II through XII intact MUSKULOSKELETAL: Able to move all extremities, strength equal bilaterally PSYCHIATRIC: Alert and oriented to person place and time, appropriate affect, intact judgment and insight INVASIVE LINES AND TUBES: Left pleural chest tubes present to waterseal, no air leaks present, 400 mL sanguineous drainage in the last 24 hours - Allied health notes Allied health notes reviewed: nursing - Labs CBC & Chem 7: 01/12/22 07:46 01/12/22 07:46 Labs: Microbiology - Last 24 Hours (Table) 01/10/22 12:05 Acid Fast Bacilli Smear - Final Lung - Left Upper Lobe Acid Fast Bacilli Culture - Preliminary 01/10/22 12:05 Acid Fast Bacilli Smear - Final Lung - Left Acid Fast Bacilli Culture - Preliminary 01/10/22 12:05 Acid Fast Bacilli Smear - Final Lung - Left Lower Lobe Acid Fast Bacilli Culture - Preliminary 01/10/22 12:05 Gram Stain - Preliminary Lung - Left Lower Lobe Tissue Culture - Preliminary 01/10/22 12:05 Gram Stain - Preliminary Lung - Left Upper Lobe Tissue Culture - Preliminary 01/10/22 12:05 Gram Stain - Preliminary Lung - Left Tissue Culture - Preliminary - Imaging and Cardiology Chest x-ray: report reviewed, image reviewed Assessment and Plan Assessment: 1. Shortness of breath, bilateral pulmonary infiltrates, status post left thoracoscopic lung biopsy 2. History of interstitial lung disease/pulmonary fibrosis 3. Rheumatoid arthritis 4. Acute blood loss anemia Plan: 1. Left pleural chest tube placed to waterseal. Will monitor output 2. Wean O2 as tolerated. Encourage incentive spirometry use 10 times every hour while awake 3. Increase activity as tolerated. Patient should be out of bed most of the day and for all meals 4. Pain control per current medication regimen 5. Will monitor daily labs and x-rays. Type and screen ordered, will transfuse 1 unit packed red blood cells. Iron/vitamin C ordered 6. GI/DVT prophylaxis 7. Continue home medications 8. More recommendations to follow
[2022-01-12 08:23] LABS: Potassium 4.1 mmol/L (3.5-5.1)
[2022-01-12 08:24] LABS: Calcium 7.6 mg/dL (8.4-10.2)
[2022-01-12 08:25] LABS: HCT 21.4 % (34.0-46.0); MCH 29.5 pg (25.0-35.0); MCHC 32.6 g/dL (31.0-37.0); MCV 90.6 fL (80.0-100.0); Mean Platelet Volume 7.4; Platelet Count 262 k/uL (150-450); RBC 2.36 m/uL (3.80-5.40); RDW 15.5 % (11.5-15.5); WBC 10.1 k/uL (3.8-10.6)
[2022-01-12] MEDS: SENNOSIDES 8.6 MG TAB PO SCH ×2 (09:10→21:09)
[2022-01-12] MEDS: ASCORBIC ACID 500 MG TAB PO SCH ×2 (09:10→16:32)
[2022-01-12] MEDS: HEPARIN SODIUM,PORCINE/PF 5,000 UNIT/0.5 ML SYRINGE SQ SCH ×3 (09:10→22:32)
[2022-01-12] MEDS: FERROUS SULFATE 325 MG TAB PO SCH ×2 (09:10→16:32)
--- NOTE | 2022-01-12 13:22 | P.PN ---
Subjective Progress Note Date: 01/12/22 56-year-old female well-known to me. The patient has a history of interstitial lung disease, with progressive shortness of breath, and dry nonproductive cough. I sent her to see Dr. Covarrubias for consideration of a VATS lung biopsy. That was done today, on the left side. She returns to room 374, from the recovery area. She is on 2 L nasal cannula. And receiving lactated Ringer's at 50 mL an hour. The patient has a left chest tube, and chest x-ray showed a 5% pneumothorax. 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 For her lung disease, she is on methotrexate, folic acid, and Humira. No new labs today. Chest x-ray shows a left-sided chest tube. A tiny left pneumothorax is present. Progress note dated 01/11/2022. This patient is postop day #1, status post lung biopsy, left lung, for interstitial lung disease. The patient's doing relatively well, although, she is complaining of lots of chest pain. Laboratory data today includes a white count 7.2, hemoglobin 9.1, hematocrit 28.4, and platelet count 268,000. Sodium, potassium, chloride, and CO2 are all normal. Anion gap is normal. BUN 21 and creatinine 1.14. Chest x-ray shows a left sided chest tube, and some atelectasis and low lung volumes. The patient is seen today 01/12/2022 in follow-up on the selective care unit. She is currently sitting up in a chair at the bedside. Awake and alert in no acute distress. Postoperative day #2. She is maintaining good O2 saturations up to 100% on 2 L/m per nasal cannula. Afebrile. Hemodynamically stable. Asked x-ray reveals a left-sided chest tube in place. No evidence of pneumothorax. Subcutaneous air persists but is improving. Persistent left basilar pleuralparenchymal density. Her hemoglobin is 7.0. She is to receive 1 unit of packed red blood cells today. 330 ML's of the left chest tube. White count 10.1. Sodium 133. Potassium 4.1. BUN 36. Creatinine 1.47. She is continued on heparin for DVT prophylaxis. Encourage increased use the incentive spirometer. Objective - Vital Signs Vital signs: Vital Signs Temp 98.2 F 01/12/22 12:38 Pulse 100 01/12/22 12:38 Resp 16 01/12/22 12:38 BP 100/55 01/12/22 12:38 Pulse Ox 99 01/12/22 12:15 FiO2 Intake & Output 01/11/22 01/12/22 01/12/22 18:59 06:59 18:59 Intake Total 0 Output Total 330 Balance -330 0 Intake: Blood Product 0 Rc As-1 Unit 0 [id number] Output: Drainage 330 Left Chest 330 Other: # Voids 1 - Exam GENERAL EXAM: Alert, pleasant 56-year-old female patient, chair at the bedside, on 2 L nasal cannula, comfortable in no apparent distress. HEAD: Normocephalic. EYES: Normal reaction of pupils, equal size. NOSE: Clear with pink turbinates. THROAT: No erythema or exudates. NECK: No masses, no JVD. CHEST: No chest wall deformity. Left sided chest tube remains in place. LUNGS: Equal air entry with crackles in the bases left greater than right CVS: S1 and S2 normal with no audible murmur, regular rhythm. ABDOMEN: No hepatosplenomegaly, normal bowel sounds, no guarding or rigidity. SPINE: No scoliosis or deformity SKIN: No rashes CENTRAL NERVOUS SYSTEM: No focal deficits, tone is normal in all 4 extremities. EXTREMITIES: There is no peripheral edema. No clubbing, no cyanosis. Peripheral pulses are intact. - Labs CBC & Chem 7: 01/12/22 07:46 01/12/22 07:46 Labs: Abnormal Lab Results - Last 24 Hours (Table) 01/12/22 01/12/22 01/12/22 Range/Units 07:46 07:46 07:46 RBC 2.36 L (3.80-5.40) m/uL Hgb 7.0 L D (11.4-16.0) gm/dL Hct 21.4 L (34.0-46.0) % Sodium 133 L (137-145) mmol/L BUN 36 H (7-17) mg/dL Creatinine 1.47 H (0.52-1.04) mg/dL Glucose 155 H (74-99) mg/dL Calcium 7.6 L (8.4-10.2) mg/dL Crossmatch See Detail Microbiology - Last 24 Hours (Table) 01/10/22 12:05 Gram Stain - Preliminary Lung - Left Lower Lobe Tissue Culture - Preliminary 01/10/22 12:05 Gram Stain - Preliminary Lung - Left Upper Lobe Tissue Culture - Preliminary 01/10/22 12:05 Gram Stain - Preliminary Lung - Left Tissue Culture - Preliminary 01/10/22 12:05 Acid Fast Bacilli Smear - Final Lung - Left Upper Lobe Acid Fast Bacilli Culture - Preliminary 01/10/22 12:05 Acid Fast Bacilli Smear - Final Lung - Left Acid Fast Bacilli Culture - Preliminary 01/10/22 12:05 Acid Fast Bacilli Smear - Final Lung - Left Lower Lobe Acid Fast Bacilli Culture - Preliminary Assessment and Plan Assessment: Postop day #2, status post left video-assisted thoracoscopic lung biopsy, for interstitial lung disease/pulmonary fibrosis. History of rheumatoid arthritis, rule out rheumatoid arthritis associated inter stitial lung disease. Prior history of right-sided lung biopsy. Anemia with hemoglobin is 7.0 receive 1 unit of packed red blood cells today. Plan: The patient was seen and evaluated Chest x-ray, labs and medications reviewed Receiving 1 unit of packed red blood cells today 10 encourage increased use the incentive spirometer Increase her activity as tolerated We'll continue to follow I have personally seen and examined the patient, performed the documentation and the assessment and plan as written. Number of minutes spent on the visit: 10.
[2022-01-12 16:10] LABS: Glucose,Whole Blood 124 mg/dL (70-110)
[2022-01-12] MEDS: traMADol 50 MG TAB PO PRN (21:08)
[2022-01-12] MEDS: CHOLECALCIFEROL 25 MCG (1000 IU) TABLET PO SCH (21:09)
[2022-01-12] MEDS: FOLIC ACID 1 MG TAB PO SCH (21:09)
[2022-01-13] MEDS: ASCORBIC ACID 500 MG TAB PO SCH ×2 (06:55→16:47)
[2022-01-13] MEDS: FERROUS SULFATE 325 MG TAB PO SCH ×2 (06:55→16:47)
[2022-01-13] MEDS: PANTOPRAZOLE 40 MG TABLET PO SCH (06:55)
[2022-01-13] MEDS: NON FORMULARY DRUG (Progesterone, Micronized [Progesterone] 100 MG Capsule) PO SCH ×2 (06:58→21:10)
[2022-01-13 08:03] LABS: HCT 23.7 % (34.0-46.0); HGB 7.8 gm/dL (11.4-16.0); MCH 29.5 pg (25.0-35.0); MCHC 32.9 g/dL (31.0-37.0); MCV 89.5 fL (80.0-100.0); Mean Platelet Volume 7.8; Platelet Count 247 k/uL (150-450); Poikilocytosis Slight; RBC 2.65 m/uL (3.80-5.40); RDW 15.4 % (11.5-15.5); WBC 9.7 k/uL (3.8-10.6)
[2022-01-13 08:16] LABS: Calcium 7.6 mg/dL (8.4-10.2); Potassium 3.9 mmol/L (3.5-5.1)
--- NOTE | 2022-01-13 08:21 | XR ---
EXAMINATION TYPE: XR chest 2V DATE OF EXAM: 01/13/2022 COMPARISON: 01/12/2022 HISTORY: Shortness of breath TECHNIQUE: Frontal and lateral views of the chest are obtained. FINDINGS: Left-sided chest tube is in place. There is lucency at the left lateral lung base peripherally and is felt to reflect small pneumothorax. Small amount of subcutaneous air noted. Pleural-parenchymal opacity left mid lung zone and left lower lobe. Heart size is stable. Mediastinal structures are stable and grossly unremarkable. No evidence for hilar prominence. Degenerative changes dorsal spine. IMPRESSION: 1. Left-sided chest tube is in place. There is lucency at the left lateral lung base peripherally and is felt to reflect small pneumothorax. Small amount of subcutaneous air noted.
--- NOTE | 2022-01-13 08:50 | P.PN ---
Subjective Progress Note Date: 01/13/22 Principal diagnosis: Shortness of breath, bilateral pulmonary infiltrates. Past medical history of interstitial lung disease/pulmonary fibrosis, rheumatoid arthritis POD #3 left thoracoscopic lung biopsy Acute blood loss anemia, unexpected The patient was seen and examined sitting up in bed on the cardiac stepdown unit. She does complain of pain and her chest tube site but states she feels better every day. Currently sinus tach with heart rate in the low 100s, soft blood pressure with systolic blood pressure in the 90s. Oxygenating well on room air. Left pleural chest tube present to waterseal, 150 mL serosanguineous drainage in the last 24 hours, no air leak is present. Hematoma appears smaller. Hemoglobin 7.8, was 7.0 yesterday. Objective - Vital Signs Vital signs: Vital Signs Temp 99.0 F 01/13/22 04:00 Pulse 74 01/13/22 04:00 Resp 16 01/13/22 04:00 BP 98/61 01/13/22 04:00 Pulse Ox 90 L 01/13/22 00:00 FiO2 28 01/12/22 19:40 Intake & Output 01/12/22 01/13/22 01/13/22 18:59 06:59 18:59 Intake Total 0 Output Total 100 70 Balance -100 -70 Intake: Blood Product 0 Rc As-1 Unit 0 [id number] Output: Chest Tube Drainage 100 70 Chest Tube Left Upper 100 70 Lateral Chest Other: # Voids 1 - Exam CONSTITUTIONAL: Appears comfortable, cooperative, no acute distress RESPIRATORY: Lungs sounds diminished bilaterally. Respirations even, n onlabored. Currently on room air with oxygen saturation 90%. Weak cough. CARDIOVASCULAR: S1, S2 present. Regular regular rate and rhythm, sinus rhythm on telemetry. Palpable peripheral pulses bilaterally. No edema present. No calf pain or tenderness noted. SCDs present. GASTROINTESTINAL: Abdomen soft, nontender, nondistended. Active bowel sounds present 4 quadrants. Tolerating diet. GENITOURINARY: Continues to void INTEGUMENTARY: Skin is warm and dry with evidence of good perfusion. Thoracic incision well approximated and covered with dry intact dressing. Thoracoscopy site hematoma outlined, continues to decrease in size NEUROLOGIC: Cranial nerves II through XII intact MUSKULOSKELETAL: Able to move all extremities, strength equal bilaterally PSYCHIATRIC: Alert and oriented to person place and time, appropriate affect, intact judgment and insight INVASIVE LINES AND TUBES: Left pleural chest tubes present to waterseal, no air leaks present, 150 mL serosanguineous drainage in the last 24 hours - Allied health notes Allied health notes reviewed: nursing - Labs CBC & Chem 7: 01/13/22 07:35 01/13/22 07:35 Labs: Abnormal Lab Results - Last 24 Hours (Table) 01/12/22 01/12/22 01/13/22 Range/Units 07:46 16:07 07:35 RBC 2.65 L (3.80-5.40) m/uL Hgb 7.8 L (11.4-16.0) gm/dL Hct 23.7 L (34.0-46.0) % Sodium (137-145) mmol/L Carbon Dioxide (22-30) mmol/L BUN (7-17) mg/dL Glucose (74-99) mg/dL POC Glucose (mg/dL) 124 H (70-110) mg/dL Calcium (8.4-10.2) mg/dL Crossmatch See Detail 01/13/22 Range/Units 07:35 RBC (3.80-5.40) m/uL Hgb (11.4-16.0) gm/dL Hct (34.0-46.0) % Sodium 136 L (137-145) mmol/L Carbon Dioxide 31 H (22-30) mmol/L BUN 18 H (7-17) mg/dL Glucose 116 H (74-99) mg/dL POC Glucose (mg/dL) (70-110) mg/dL Calcium 7.6 L (8.4-10.2) mg/dL Crossmatch Microbiology - Last 24 Hours (Table) 01/10/22 12:05 Anaerobic Culture - Preliminary Lung - Left Lower Lobe 01/10/22 12:05 Anaerobic Culture - Preliminary Lung - Left 01/10/22 12:05 Anaerobic Culture - Preliminary Lung - Left Upper Lobe 01/10/22 12:05 Gram Stain - Preliminary Lung - Left Lower Lobe Tissue Culture - Preliminary 01/10/22 12:05 Gram Stain - Preliminary Lung - Left Upper Lobe Tissue Culture - Preliminary 01/10/22 12:05 Gram Stain - Preliminary Lung - Left Tissue Culture - Preliminary - Imaging and Cardiology Chest x-ray: report reviewed, image reviewed Assessment and Plan Assessment: 1. Shortness of breath, bilateral pulmonary infiltrates, status post left thoracoscopic lung biopsy 2. History of interstitial lung disease/pulmonary fibrosis 3. Rheumatoid arthritis 4. Acute blood loss anemia Plan: 1. Will discontinue left pleural chest tube today 2. Encourage incentive spirometry use 10 times every hour while awake 3. Increase activity as tolerated. Patient should be out of bed most of the day and for all meals 4. Pain control per current medication regimen 5. Will monitor daily labs and x-rays. Continue Iron/vitamin C 6. GI/DVT prophylaxis 7. Continue home medications 8. If repeat chest x-ray tomorrow morning remains stable likely will discharge to home tomorrow 9. More recommendations to follow
[2022-01-13] MEDS: HEPARIN SODIUM,PORCINE/PF 5,000 UNIT/0.5 ML SYRINGE SQ SCH ×2 (09:18→16:47)
[2022-01-13] MEDS: SENNOSIDES 8.6 MG TAB PO SCH ×2 (09:18→20:42)
--- NOTE | 2022-01-13 11:54 | P.PN ---
Subjective Progress Note Date: 01/13/22 Principal diagnosis: Interstitial lung disease. Pulmonary consult dated 01/10/2022. 56-year-old female well-known to me. The patient has a history of interstitial lung disease, with progressive shortness of breath, and dry nonproductive cough. I sent her to see Dr. Covarrubias for consideration of a VATS lung biopsy. That was done today, on the left side. She returns to room 374, from the recovery area. She is on 2 L nasal cannula. And receiving lactated Ringer's at 50 mL an hour. The patient has a left chest tube, and chest x-ray showed a 5% pneumothorax. 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 For her lung disease, she is on methotrexate, folic acid, and Humira. No new labs today. Chest x-ray shows a left-sided chest tube. A tiny left pneumothorax is present. Progress note dated 01/11/2022. This patient is postop day #1, status post lung biopsy, left lung, for interstitial lung disease. The patient's doing relatively well, although, she is complaining of lots of chest pain. Laboratory data today includes a white count 7.2, hemoglobin 9.1, hematocrit 28.4, and platelet count 268,000. Sodium, potassium, chloride, and CO2 are all normal. Anion gap is normal. BUN 21 and creatinine 1.14. Chest x-ray shows a left sided chest tube, and some atelectasis and low lung volumes. Progress note dated 01/13/2022. Postop day #3, status post video-assisted left lung biopsy, for interstitial lung disease. Currently, the patient is on room air. Cardiothoracic surgery may remove the chest tube today. Current labs include a white count 9.7, hemoglobin 7.8, hematocrit 23.7, and a normal platelet count. Sodium 136, potassium 3.9, chlorides 102, CO2 31, BUN 18, creatinine 0.94. Chest x-ray tod ay shows a left sided chest tube in place. The patient may have a small left pneumothorax, left lateral lung base. A small amount of subcutaneous air is also noted Objective - Vital Signs Vital signs: Vital Signs Temp 98.4 F 01/13/22 09:00 Pulse 102 H 01/13/22 09:00 Resp 16 01/13/22 09:00 BP 100/56 01/13/22 09:00 Pulse Ox 97 01/13/22 09:00 FiO2 28 01/12/22 19:40 Intake & Output 01/12/22 01/13/22 01/13/22 18:59 06:59 18:59 Intake Total 0 Output Total 100 70 Balance -100 -70 Intake: Blood Product 0 Rc As-1 Unit 0 [id number] Output: Chest Tube Drainage 100 70 Chest Tube Left Upper 100 70 Lateral Chest Other: # Voids 1 - Exam No acute distress, much more awake, on room air. No conversational dyspnea or use of accessory muscles. HEENT examination is grossly unremarkable. Neck supple. Full range of motion. No adenopathy thyromegaly or neck vein distention. Cardiovascular examination reveals regular rhythm rate. S1-S2 normal. No S3 or S4. No discernible murmur noted. Heart rate 90 bpm. Lungs reveal diminished breath sounds throughout. She does not take deep breaths because of the recent surgery. Bibasilar crackles are noted. Mild rhonchi are appreciated. No wheezes. Saturations are 97% on room air. Abdomen soft bowel sounds are heard. No masses or tenderness. Extremities are intact. No cyanosis clubbing or edema. Skin is without rash or lesion. Neurologic examination is brief but nonfocal. - Labs CBC & Chem 7: 01/13/22 07:35 01/13/22 07:35 Labs: Abnormal Lab Results - Last 24 Hours (Table) 01/12/22 01/12/22 01/13/22 Range/Units 07:46 16:07 07:35 RBC 2.65 L (3.80-5.40) m/uL Hgb 7.8 L (11.4-16.0) gm/dL Hct 23.7 L (34.0-46.0) % Sodium (137-145) mmol/L Carbon Dioxide (22-30) mmol/L BUN (7-17) mg/dL Glucose (74-99) mg/dL POC Glucose (mg/dL) 124 H (70-110) mg/dL Calcium (8.4-10.2) mg/dL Crossmatch See Detail 01/13/22 Range/Units 07:35 RBC (3.80-5.40) m/uL Hgb (11.4-16.0) gm/dL Hct (34.0-46.0) % Sodium 136 L (137-145) mmol/L Carbon Dioxide 31 H (22-30) mmol/L BUN 18 H (7-17) mg/dL Glucose 116 H (74-99) mg/dL POC Glucose (mg/dL) (70-110) mg/dL Calcium 7.6 L (8.4-10.2) mg/dL Crossmatch Microbiology - Last 24 Hours (Table) 01/10/22 12:05 Gram Stain - Preliminary Lung - Left Upper Lobe Tissue Culture - Preliminary 01/10/22 12:05 Gram Stain - Preliminary Lung - Left Tissue Culture - Preliminary 01/10/22 12:05 Gram Stain - Preliminary Lung - Left Lower Lobe Tissue Culture - Preliminary 01/10/22 12:05 Anaerobic Culture - Preliminary Lung - Left Lower Lobe 01/10/22 12:05 Anaerobic Culture - Preliminary Lung - Left 01/10/22 12:05 Anaerobic Culture - Preliminary Lung - Left Upper Lobe Assessment and Plan Assessment: Postop day #3, status post left video-assisted thoracoscopic lung biopsy, for interstitial lung disease/pulmonary fibrosis. History of rheumatoid arthritis, rule out rheumatoid arthritis associated interstitial lung disease. Prior history of right-sided lung biopsy. Plan: Plan dated 01/10/2022. The patient is seen in room 374. She seems to be resting relatively comfortably but she is very sleepy and somnolent from the recent surgery. The chest x-rays reviewed. The patient will likely be discharged in the next 24 hours. Left- sided chest tube is noted. A small pneumothorax is appreciated. The patient will follow with me in the office. Prognosis is guarded. Plan dated 01/11/2022. We recommend the patient deep breathe, cough, and clear secretions. In addition, the patient should use the incentive spirometer every hour while awake. I explained to the patient, maybe 10-14 days before we have the final biopsy results. Typically, the biopsies are interpreted here, and sent to [facility], for their impression. Additional recommendations and suggestions are forthcoming. Prognosis is guarded. Plan dated 01/13/2022. The patient appears to be doing better. She's been weaned to room air. The patient is not receiving any IV fluids. Labs, x-rays, and medications are reviewed. I did mention to the patient, that cardiothoracic surgery would make decision about when the chest tube came out, and when the patient is discharged. The patient will follow-up with me in the office in 7-10 days. Additional recommendations and suggestions are forthcoming. I do encourage her to take in centive spirometer home, and use it on a regular basis. Time with Patient: Less than 30
[2022-01-13] MEDS: ACETAMINOPHEN TAB 325 MG TAB PO PRN ×2 (12:13→20:42)
[2022-01-13] MEDS: FOLIC ACID 1 MG TAB PO SCH (20:42)
[2022-01-13] MEDS: CHOLECALCIFEROL 25 MCG (1000 IU) TABLET PO SCH (20:43)
[2022-01-14] MEDS: HEPARIN SODIUM,PORCINE/PF 5,000 UNIT/0.5 ML SYRINGE SQ SCH ×2 (00:34→08:13)
[2022-01-14] MEDS: ASCORBIC ACID 500 MG TAB PO SCH (06:38)
[2022-01-14] MEDS: PANTOPRAZOLE 40 MG TABLET PO SCH (06:38)
[2022-01-14] MEDS: FERROUS SULFATE 325 MG TAB PO SCH (06:38)
[2022-01-14 07:58] LABS: HCT 26.1 % (34.0-46.0); HGB 8.6 gm/dL (11.4-16.0); MCH 29.6 pg (25.0-35.0); MCHC 32.9 g/dL (31.0-37.0); MCV 89.8 fL (80.0-100.0); Mean Platelet Volume 7.7; Platelet Count 311 k/uL (150-450); RDW 15.3 % (11.5-15.5); WBC 10.9 k/uL (3.8-10.6)
[2022-01-14] MEDS: SENNOSIDES 8.6 MG TAB PO SCH (08:12)
[2022-01-14] MEDS: ACETAMINOPHEN TAB 325 MG TAB PO PRN (08:12)
--- NOTE | 2022-01-14 08:16 | P.PN ---
Subjective Progress Note Date: 01/14/22 Principal diagnosis: Shortness of breath, bilateral pulmonary infiltrates. Past medical history of interstitial lung disease/pulmonary fibrosis, rheumatoid arthritis POD #4 left thoracoscopic lung biopsy Acute blood loss anemia, unexpected The patient was seen and examined sitting up in a recliner on the cardiac stepdown unit. She does complain of pain at her chest tube site but better since removal yesterday. Currently sinus rhythm and hemodynamically stable. Oxygenating well on room air. Left pleural chest tube discontinued yesterday, patient does still have some drainage from the site and dressing has been reinforced. Hematoma appears smaller. Hemoglobin 8.6, was 7.8 yesterday. Objective - Vital Signs Vital signs: Vital Signs Temp 98.1 F 01/14/22 04:00 Pulse 106 H 01/14/22 04:00 Resp 18 01/14/22 04:00 BP 94/59 01/14/22 04:00 Pulse Ox 95 01/14/22 04:00 FiO2 28 01/12/22 19:40 Intake & Output 01/13/22 01/14/22 01/14/22 18:59 06:59 18:59 Intake Total 170 120 Balance 170 120 Intake: Oral 170 120 - Exam CONSTITUTIONAL: Appears comfortable, cooperative, no acute distress RESPIRATORY: Lungs sounds diminished bilaterally. Respirations even, nonlabored. Currently on room air with oxygen saturation 95%. Weak cough. Able to achieve 1750 mL on her incentive spirometer CARDIOVASCULAR: S1, S2 present. Regular regular rate and rhythm, sinus rhythm on telemetry. Palpable peripheral pulses bilaterally. No edema present. No calf pain or tenderness noted. SCDs present. GASTROINTESTINAL: Abdomen soft, nontender, nondistended. Active bowel sounds present 4 quadrants. Tolerating diet. GENITOURINARY: Continues to void INTEGUMENTARY: Skin is warm, does have some drainage from chest tube site and dressing has been reinforced. Thoracoscopy site hematoma outlined, continues to decrease in size NEUROLOGIC: Cranial nerves II through XII intact MUSKULOSKELETAL: Able to move all extremities, strength equal bilaterally PSYCHIATRIC: Alert and oriented to person place and time, appropriate affect, intact judgment and insight - Allied health notes Allied health notes reviewed: nursing - Labs CBC & Chem 7: 01/14/22 07:28 01/13/22 07:35 Labs: Abnormal Lab Results - Last 24 Hours (Table) 01/13/22 01/14/22 Range/Units 07:35 07:28 WBC 10.9 H (3.8-10.6) k/uL RBC 2.90 L (3.80-5.40) m/uL Hgb 8.6 L (11.4-16.0) gm/dL Hct 26.1 L (34.0-46.0) % Sodium 136 L (137-145) mmol/L Carbon Dioxide 31 H (22-30) mmol/L BUN 18 H (7-17) mg/dL Glucose 116 H (74-99) mg/dL Calcium 7.6 L (8.4-10.2) mg/dL Microbiology - Last 24 Hours (Table) 01/10/22 12:05 Gram Stain - Preliminary Lung - Left Upper Lobe Tissue Culture - Preliminary 01/10/22 12:05 Gram Stain - Preliminary Lung - Left Tissue Culture - Preliminary 01/10/22 12:05 Gram Stain - Preliminary Lung - Left Lower Lobe Tissue Culture - Preliminary - Imaging and Cardiology Chest x-ray: image reviewed Assessment and Plan Assessment: 1. Shortness of breath, bilateral pulmonary infiltrates, status post left thoracoscopic lung biopsy 2. History of interstitial lung disease/pulmonary fibrosis 3. Rheumatoid arthritis 4. Acute blood loss anemia Plan: 1. Left chest tube discontinued yesterday. Continue dressing for another 24 hours then may discontinue and allow patient to shower daily 2. Encourage incentive spirometry use 10 times every hour while awake 3. Increase activity as tolerated. Patient should be out of bed most of the day and for all meals 4. Pain control per current medication regimen, avoidance narcotics 5. Will monitor daily labs and x-rays. Continue Iron/vitamin C 6. GI/DVT prophylaxis 7. Continue home medications 8. Will discharge this afternoon versus tomorrow morning 9. More recommendations to follow
[2022-01-14 08:18] VITALS: TEMP 99.1
[2022-01-14 08:20] LABS: African American GFR (CKD) >90 (>60 ml/min/1.73 sqM); Anion Gap 5 mmol/L; Blood Urea Nitrogen 11 mg/dL (7-17); Calcium 8.2 mg/dL (8.4-10.2); Carbon Dioxide 27 mmol/L (22-30); Chloride 103 mmol/L (98-107); Glucose 123 mg/dL (74-99); Non-African American GFR(CKD) 78 (>60 ml/min/1.73 sqM); Potassium 4.3 mmol/L (3.5-5.1); Sodium 135 mmol/L (137-145)
--- NOTE | 2022-01-14 09:01 | XR ---
EXAMINATION TYPE: XR chest 2V DATE OF EXAM: 01/14/2022 COMPARISON: 01/13/2022 TECHNIQUE: PA and lateral views submitted. HISTORY: Postlung biopsy FINDINGS: Left-sided infiltrate and small effusion. No sizable pneumothorax. Heart size normal. Hypertrophic de generative changes in the spine. Prominent interstitial markings. Chest tube is been removed with no sizable pneumothorax. Near complete resolution of subcutaneous emphysema. IMPRESSION: 1. Left lower lobe infiltrate and small effusion. Suspect right basilar atelectasis. Coarsened inters titium associated with interstitial pneumonitis or mild venous congestion. 2. No sizable pneumothorax
[2022-01-14 11:58] VITALS: BP 98/63; PULSE 86; RESP 16
--- NOTE | 2022-01-14 14:44 | P.PN ---
Subjective Progress Note Date: 01/14/22 56-year-old female well-known to me. The patient has a history of interstitial lung disease, with progressive shortness of breath, and dry nonproductive cough. I sent her to see Dr. Covarrubias for consideration of a VATS lung biopsy. That was done today, on the left side. She returns to room 374, from the recovery area. She is on 2 L nasal cannula. And receiving lactated Ringer's at 50 mL an hour. The patient has a left chest tube, and chest x-ray showed a 5% pneumothorax. 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 For her lung disease, she is on methotrexate, folic acid, and Humira. No new labs today. Chest x-ray shows a left-sided chest tube. A tiny left pneumothorax is present. Progress note dated 01/11/2022. This patient is postop day #1, status post lung biopsy, left lung, for interstitial lung disease. The patient's doing relatively well, although, she is complaining of lots of chest pain. Laboratory data today includes a white count 7.2, hemoglobin 9.1, hematocrit 28.4, and platelet count 268,000. Sodium, potassium, chloride, and CO2 are all normal. Anion gap is normal. BUN 21 and creatinine 1.14. Chest x-ray shows a left sided chest tube, and some atelectasis and low lung volumes. Progress note dated 01/13/2022. Postop day #3, status post video-assisted left lung biopsy, for interstitial lung disease. Currently, the patient is on room air. Cardiothoracic surgery may remove the chest tube today. Current labs include a white count 9.7, hemoglobin 7.8, hematocrit 23.7, and a normal platelet count. Sodium 136, potassium 3.9, chlorides 102, CO2 31, BUN 18, creatinine 0.94. Chest x-ray today shows a left sided chest tube in place. The patient may have a small left pneumothorax, left lateral lung base. A small amount of subcutaneous air is also noted 01/14/2022, the patient is being seen for a follow-up. The patient is postop day #4. The patient underwent a wide resection of the lung, thoracoscopic approach, as the patient has an underlying interstitial lung disease in the setting of rheumatoid arthritis and the patient is receiving a combination of Humira and methotrexate on outpatient basis. She is doing well. She has no specific complaints patient is on room air oxygen.the chest x-ray from today shows no evidence of any pneumothorax. There is a left lower lobe pulmonary infiltrates/effusion and some coarse interstitial changes bilaterally. Chest tubes have been removed.the patient's hemoglobin today is at 8.6 with a white cell count of 10.9. BNP is 11 with a creatinine of 0.8. No other significant abnormalities have been noted. Objective - Vital Signs Vital signs: Vital Signs Temp 99.1 F 01/14/22 08:00 Pulse 100 01/14/22 08:00 Resp 18 01/14/22 08:00 BP 109/69 01/14/22 08:00 Pulse Ox 100 01/14/22 08:00 FiO2 28 01/12/22 19:40 Intake & Output 01/13/22 01/14/22 01/14/22 18:59 06:59 18:59 Intake Total 170 120 358 Balance 170 120 358 Intake: Oral 170 120 358 - Exam No acute distress, much more awake, on room air. No conversational dyspnea or use of accessory muscles. HEENT examination is grossly unremarkable. Neck supple. Full range of motion. No adenopathy thyromegaly or neck vein di stention. Cardiovascular examination reveals regular rhythm rate. S1-S2 normal. No S3 or S4. No discernible murmur noted. Heart rate 90 bpm. Lungs reveal diminished breath sounds throughout. She does not take deep breaths because of the recent surgery. Bibasilar crackles are noted. Mild rho nchi are appreciated. No wheezes. chest tube site is dry clean and intact. Abdomen soft bowel sounds are heard. No masses or tenderness. Extremities are intact. No cyanosis clubbing or edema. Skin is without rash or lesion. Neurologic examination is brief but nonfocal. - Labs CBC & Chem 7: 01/14/22 07:28 01/14/22 07:28 Labs: Abnormal Lab Results - Last 24 Hours (Table) 01/14/22 01/14/22 Range/Units 07: 07:28 WBC 10.9 H (3.8-10.6) k/uL RBC 2.90 L (3.80-5.40) m/uL Hgb 8.6 L (11.4-16.0) gm/dL Hct 26.1 L (34.0-46.0) % Sodium 135 L (137-145) mmol/L Glucose 123 H (74-99) mg/dL Calcium 8.2 L (8.4-10.2) mg/dL Microbiology - Last 24 Hours (Table) 01/10/22 12:05 Gram Stain - Final Lung - Left Upper Lobe Tissue Culture - Final 01/10/22 12:05 Gram Stain - Final Lung - Left Tissue Culture - Final 01/10/22 12:05 Gram Stain - Final Lung - Left Lower Lobe Tissue Culture - Final Assessment and Plan Plan: Postop day #3, status post left video-assisted thoracoscopic lung biopsy, for interstitial lung disease/pulmonary fibrosis. History of rheumatoid arthritis, rule out rheumatoid arthritis associated interstitial lung disease. Prior history of right-sided lung biopsy. Plan: chest tube are minimal continue using incentive spirometer increase mobility as tolerated Adequate pain control discharge this patient home today to the followed up with the pulmonary clinic.
--- NOTE | 2022-01-14 15:44 | P.DS ---
Providers Date of admission: 01/10/22 06:55 Expected date of discharge: 01/14/22 Attending physician: Jorge Covarrubias Consults: 01/10/22 14:38 Consult Physician Routine Consulting Provider: Rajendra Sutton Consult Reason/Comments: post lung biopsy Do you want consulting provider notified?: Yes [facility] [place] [facility] Course: FINAL DIAGNOSIS: 1. Shortness of breath, bilateral pulmonary infiltrates 2. History of interstitial lung disease/pulmonary fibrosis 3. Rheumatoid arthritis 4. Acute blood loss anemia PRINCIPAL PROCEDURE: 1. Left thoracoscopic lung biopsy HISTORY OF PRESENT ILLNESS: This is a 56-year-old female who follows on an outpatient basis with Dr. Zurita for primary care and Dr. Sutton for pulmonology. She complains of significant fatigue and dyspnea on exertion which has been going on for several months and slowly progressing. She has known history of rheumatoid arthritis with previous lung biopsy about 10 years ago when she first started seeing Dr. Sutton. The patient recently presented to the emergency room complaining of shortness of breath and had a CT scan to rule out pulmonary embolism. The CT was negative for pulmonary embolism, however did show significant interstitial lung disease with some honeycombing of the lower lobes with significant mediastinal lymphadenopathy. The patient was referred to Dr. Covarrubias from cardiothoracic surgery. She was recommended to undergo surgical lung biopsy. The usual perioperative course was discussed in detail with the patient and her family, all risks and benefits were explained, all questions were answered, and consent was obtained to proceed with surgery. The patient was scheduled for surgery at the earliest possible date. HOSPITAL COURSE: The patient was brought to the hospital on 01/10/22, taken to the preoperative area, prepared in the usual fashion, and subsequently taken to the operating room where Dr. Covarrubias performed a left thoracoscopic lung biopsy. Upon completion of surgery the patient was extubated and taken to the recovery room where she was recovered and monitored hemodynamically. She was eventually admitted to 3 S. cardiac stepdown unit for further monitoring. She did experience acute blood loss anemia requiring 1 unit blood transfusion with recovery of hemoglobin. Her pleural chest tube was discontinued on postop day #3. Follow-up chest x-ray was acceptable, her oxygen was titrated down, she was tolerating oral diet, her pain was controlled, and she was ready to be discharged to home on postoperative day #4. She received written and verbal instruction regarding her medications, activity restrictions, signs and symptoms requiring physician notification, and follow-up appointments. Patient Condition at Discharge: Stable Plan - Discharge Summary Discharge Rx Participant: No New Discharge Prescriptions: New Ferrous Sulfate [Iron (65 MG Elemental)] 325 mg PO BID-W/MEALS tab Acetaminophen Tab [Tylenol] 650 mg PO Q4HR PRN tab PRN Reason: Fever And/ Or Pain Ascorbic Acid [Vitamin C] 500 mg PO BID-W/MEALS tab Continue Folic Acid 1 mg PO HS Cholecalciferol (Vitamin D3) [Vitamin D3] 2,000 unit PO HS Adalimumab [Humira Pen] 40 mg SQ [id number] Progesterone, Micronized [Progesterone] 100 mg PO HS estradioL [Estrace] 0.5 mg PO HS Albuterol Inhaler [Ventolin Hfa Inhaler] 2 puff INHALATION RT-QID PRN PRN Reason: Shortness Of Breath metHOTREXate sodium [Methotrexate] 12.5 mg PO WE Discontinued Ibuprofen [Advil] 200 - 400 mg PO Q6H PRN PRN Reason: HEADACHE/PAIN Discharge Medication List Folic Acid 1 mg PO HS 11/18/14 [History] Adalimumab [Humira Pen] 40 mg SQ [id number] 04/14/17 [History] Cholecalciferol (Vitamin D3) [Vitamin D3] 2,000 unit PO HS 04/14/17 [History] Progesterone, Micronized [Progesterone] 100 mg PO HS 04/15/17 [History] estradioL [Estrace] 0.5 mg PO HS 04/15/17 [History] Albuterol Inhaler [Ventolin Hfa Inhaler] 2 puff INHALATION RT-QID PRN 01/08/22 [History] metHOTREXate sodium [Methotrexate] 12.5 mg PO WE 01/08/22 [History] Acetaminophen Tab [Tylenol] 650 mg PO Q4HR PRN tab 01/14/22 [Rx] Ascorbic Acid [Vitamin C] 500 mg PO BID-W/MEALS tab 01/14/22 [Rx] Ferrous Sulfate [Iron (65 MG Elemental)] 325 mg PO BID-W/MEALS tab 01/14/22 [Rx] Follow up Appointment(s)/Referral(s): Jorge Covarrubias MD [STAFF PHYSICIAN] - 01/17/22 10:00 am Rajendra Sutton DO [Doctor of Osteopathic Medicine] - 02/04/22 2:30 pm Activity/Diet/Wound Care/Special Instructions: DISCHARGE INSTRUCTIONS: 1. No driving for 2 weeks, or until physician gives their ok. 2. No lifting, pushing, or pulling more than 10 pounds for 2 weeks. The physician will advise of any restriction changes. 3. Continue pain control per as needed orders. Use acetaminophen (Tylenol) for pain. for the next week 4. Continue with incentive spirometry and splinting until otherwise directed by the physician. 5. Leave chest tube dressing for 48 hours (01/15/22). After that, remove all dressings and shower daily. 6. Routine incision care. No powders, lotions, ointments on incisions. 7. Please call surgeon/CHAIN MENDER for temp greater than 101 F or purulent drainage from incisions. Discharge Disposition: HOME SELF-CARE
[2022-01-16] MEDS ORDERED: metHOTREXate sodium 2.5 MG TAB PO SCH (09:00)
== END 2022-01-14 15:02 | disposition home or self-care (01) | DRG 167 ==
LOC: 2ORMAIN 06:55 → 3SCARD 14:11
PROVIDERS: ADMIT Thoracic Surgery (Cardiothoracic Vascular Surgery); ATTEND Thoracic Surgery (Cardiothoracic Vascular Surgery)
PROC: 0BBJ4ZX Excision of Left Lower Lung Lobe, Percutaneous Endoscopic Approach, Diagnostic (ICD-10-PCS; principal; 2022-01-10 08:45)
PROC: 0BBG4ZX Excision of Left Upper Lung Lobe, Percutaneous Endoscopic Approach, Diagnostic (ICD-10-PCS; principal; 2022-01-10 08:45)
PROC: 0BBH4ZX Excision of Lung Lingula, Percutaneous Endoscopic Approach, Diagnostic (ICD-10-PCS; principal; 2022-01-10 08:45)
PROC: 30233N1 Transfusion of Nonautologous Red Blood Cells into Peripheral Vein, Percutaneous Approach (ICD-10-PCS; 2022-01-12)
DX: J84.9 Interstitial pulmonary disease, unspecified (principal); D62 Acute posthemorrhagic anemia; J93.9 Pneumothorax, unspecified; J98.11 Atelectasis; J84.10 Pulmonary fibrosis, unspecified; R91.8 Other nonspecific abnormal finding of lung field; M05.10 Rheumatoid lung disease with rheumatoid arthritis of unspecified site; R59.0 Localized enlarged lymph nodes; I73.00 Raynaud's syndrome without gangrene; M35.00 Sjogren syndrome, unspecified; R09.02 Hypoxemia; Z83.3 Family history of diabetes mellitus; Z87.891 Personal history of nicotine dependence; Z80.3 Family history of malignant neoplasm of breast; Z82.49 Family history of ischemic heart disease and other diseases of the circulatory system; Z79.890 Hormone replacement therapy; Z79.899 Other long term (current) drug therapy; Z98.890 Other specified postprocedural states
CPT/HCPCS: 71045; 71046; 80048; 85025; 85027; 86850; 86900; 86901; 86920; 87070; 87075; 87102; 87116; 87205; 87206; 88307; 94760

== ENCOUNTER → 2022-11-15 | Outpatient (CLI) | payer BC ==
--- NOTE | 2022-11-18 07:20 | MM ---
Reason for Exam: Screening (asymptomatic). Last screening mammogram was performed 12 month(s) ago. Patient History: Menarche at age 11. First Full-Term at age 21. Postmenopausal. Currently using Estrogen, beginning at age 52 for 4 years. 04/16/2019, Benign Core Biopsy on the right side. Mother had breast cancer, age 50. Risk Values: Betty 5 year model risk: 3.1%. NCI Lifetime model risk: 16.2%. Prior Study Comparison: 03/08/2019 Bilateral Screening Mammogram, [facility]. 03/17/2019 Right Diagnostic Mammogram, [facility]. 10/26/2021 Bilateral Screening Mammogram, [facility]. Tissue Density: The breast tissue is heterogeneously dense. This may lower the sensitivity of mammography. Findings: Analyzed By CAD. Mammotome biopsy clip in the right breast is redemonstrated. Benign-appearing bilateral axillary lymph nodes are again seen. There is no suspicious group of microcalcifications or new suspicious mass in either breast. Overall Assessment: Benign, BI-RAD 2 Management: Screening Mammogram of both breasts in 1 year. . Patient should continue monthly self-breast exams. A clinical breast exam by your physician is recommended on an annual basis. This exam should not preclude additional follow-up of suspicious palpable abnormalities. Note on Betty scores and lifetime risk: 1. A Betty score greater than 3% is considered moderate risk. If this is the case, consider specialist referral to assess eligibility for a risk reducing agent. 2. If overall lifetime risk for the development of breast cancer is 20% or higher, the patient may qualify for future screening with alternating mammogram and breast MRI. Electronically signed and approved by: Tushar Richardson M.D.
== END | disposition home or self-care (01) ==
LOC: RADMAMWWP 07:47
PROVIDERS: ATTEND Obstetrics & Gynecology
DX: Z12.31 Encounter for screening mammogram for malignant neoplasm of breast (principal); Z78.0 Asymptomatic menopausal state; Z80.3 Family history of malignant neoplasm of breast
CPT/HCPCS: 77063; 77067

== ENCOUNTER → 2023-07-28 | Outpatient (CLI) | payer MEDICARE, BC ==
[2023-07-28 15:27] LABS: ALT 28 U/L (8-44); AST 26 U/L (13-35); Albumin 4.1 g/dL (3.8-4.9); Albumin/Globulin Ratio 1.08 Ratio (1.60-3.17); Alkaline Phosphatase 50 U/L (41-126); BUN/Creat Ratio 13.78 Ratio (12.00-20.00); Blood Urea Nitrogen 12.4 mg/dL (9.0-27.0); Calcium 9.7 mg/dL (8.7-10.3); Carbon Dioxide 27.5 mmol/L (21.6-31.8); Chloride 101 mmol/L (96-109); Globulin 3.8 g/dL (1.6-3.3); Glucose 94 mg/dL (70-110); Potassium 4.4 mmol/L (3.5-5.5); Sodium 138 mmol/L (135-145); Total Bilirubin 0.2 mg/dL (0.3-1.2); Total Protein 7.9 g/dL (6.2-8.2)
== END | disposition home or self-care (01) ==
LOC: LABWHC1 11:54
PROVIDERS: ATTEND Internal Medicine Critical Care Medicine
DX: Z51.81 Encounter for therapeutic drug level monitoring (principal); Z79.899 Other long term (current) drug therapy
CPT/HCPCS: 36415; 80053

== ENCOUNTER → 2024-01-08 | Outpatient (CLI) | payer MEDICARE, BC ==
--- NOTE | 2024-01-08 10:36 | MM ---
Reason for Exam: Screening (asymptomatic). Last mammogram was performed 1 year(s) and 2 month(s) ago. Patient History: Menarche at age 11. First Full-Term at age 21. Postmenopausal. Currently using Estrogen, beginning at age 52 for 4 years. 04/16/2019, Benign Core Biopsy on the right side. Mother had breast cancer, age 50. Risk Values: Betty 5 year model risk: 3.2%. NCI Lifetime model risk: 15.8%. Prior Study Comparison: 03/17/2019 Right Diagnostic Mammogram, [facility]. 10/26/2021 Bilateral Screening Mammogram, [facility]. 11/15/2022 Bilateral MG 3D screening mammo w/cad, [facility]. Tissue Density: The breasts are heterogeneously dense, which may obscure small masses. Findings: Analyzed By CAD. There is no suspicious group of microcalcifications or new suspicious mass in either breast. Overall Assessment: Benign, BI-RAD 2 Management: Screening Mammogram of both breasts in 1 year. . Patient should continue monthly self-breast exams. A clinical breast exam by your physician is recommended on an annual basis. This exam should not preclude additional follow-up of suspicious palpable abnormalities. Note on Betty scores and lifetime risk: 1. A Betty score greater than 3% is considered moderate risk. If this is the case, consider specialist referral to assess eligibility for a risk reducing agent. 2. If overall lifetime risk for the development of breast cancer is 20% or higher, the patient may qualify for future screening with alternating mammogram and breast MRI. Electronically signed and approved by: Milton Escobedo M.D. Radiologis
== END | disposition home or self-care (01) ==
LOC: RADMAMWWP 08:33
PROVIDERS: ATTEND Obstetrics & Gynecology
DX: Z12.31 Encounter for screening mammogram for malignant neoplasm of breast (principal); Z78.0 Asymptomatic menopausal state; Z80.3 Family history of malignant neoplasm of breast
CPT/HCPCS: 77063; 77067

== ENCOUNTER → 2024-01-16 | Outpatient (CLI) | payer MEDICARE, BC ==
[2024-01-16 18:22] LABS: ALT 34 U/L (8-44); AST 36 U/L (13-35); Albumin 4.2 g/dL (3.8-4.9); Albumin/Globulin Ratio 1.08 Ratio (1.60-3.17); Alkaline Phosphatase 46 U/L (41-126); BUN/Creat Ratio 14.56 Ratio (12.00-20.00); Blood Urea Nitrogen 13.1 mg/dL (9.0-27.0); Calcium 9.6 mg/dL (8.7-10.3); Carbon Dioxide 26.7 mmol/L (21.6-31.8); Chloride 102 mmol/L (96-109); Globulin 3.9 g/dL (1.6-3.3); Glucose 92 mg/dL (70-110); Potassium 4.6 mmol/L (3.5-5.5); Sodium 139 mmol/L (135-145); Total Bilirubin 0.4 mg/dL (0.3-1.2); Total Protein 8.1 g/dL (6.2-8.2)
== END | disposition home or self-care (01) ==
LOC: LABWHC1 13:37
PROVIDERS: ATTEND Internal Medicine Critical Care Medicine
DX: Z51.81 Encounter for therapeutic drug level monitoring (principal); Z79.899 Other long term (current) drug therapy
CPT/HCPCS: 36415; 80053

== ENCOUNTER → 2024-01-19 | Outpatient (CLI) | payer MEDICARE, BC ==
--- NOTE | 2024-01-19 14:31 | CT ---
EXAMINATION TYPE: CT chest wo con CT DLP: 1156 mGycm, Automated exposure control for dose reduction was used. DATE OF EXAM: 01/19/2024 2:04 PM COMPARISON: 11/08/2021 CLINICAL INDICATION:Female, 58 years old with history of J84.89 INTERSTITIAL LUNG DISEASE; PHH, pulmo nary fibrosis TECHNIQUE: High resolution contiguous 1 mm axial images of the chest were obtained in a supine and pr one position. Contiguous 1 mm, slices were obtained in prone positioning. Noncontiguous 1 mm axial im ages at 10 mm intervals were obtained in supine position in expiration and inspiration. Coronal and s agittal reformatted images were obtained. No intravenous contrast was administered. Contrast used: mL of (None if empty) Oral contrast used: (None if empty) FINDINGS: LUNGS: Elevated right diaphragm. There is no evidence of interstitial thickening, significant groundg lass opacity,. There is honeycombing in the lung bases however. No acute area of infiltrative or cons olidative change. LARGE AIRWAYS: Central airways are patent. No dynamic airway collapse on expiratory imaging. PLEURA: No pleural effusion or thickening. HEART: The heart is enlarged for size. Coronary artery calcifications are present. MEDIASTINUM: No gross evidence of adenopathy. VASCULATURE: No aortic aneurysm. MUSCULOSKELETAL: Mild disc degeneration changes are present throughout the thoracolumbar spine. SOFT TISSUES/LYMPH NODES: Unremarkable. LOWER NECK: No significant findings. UPPER ABDOMEN: No significant findings. IMPRESSION: 1. Honeycombing in the lung bases compatible with pulmonary fibrosis. Findings have progressed from 2021. 2. Bronchiectasis most pronounced lung bases suggestive of COPD. 3. Cardiomegaly with mild pulmonary vascular congestion correlate with serum BNP. 4. Elevated right diaphragm correlate for phrenic nerve injury.
== END | disposition home or self-care (01) ==
LOC: RADCTMAIN 13:38
PROVIDERS: ATTEND Internal Medicine Critical Care Medicine
DX: J84.10 Pulmonary fibrosis, unspecified (principal); J47.9 Bronchiectasis, uncomplicated; I51.7 Cardiomegaly; R09.89 Other specified symptoms and signs involving the circulatory and respiratory systems
CPT/HCPCS: 71250

== ENCOUNTER → 2025-01-10 | Outpatient (CLI) | payer MEDICARE ==
--- NOTE | 2025-01-10 11:34 | MM ---
Reason for Exam: Screening (asymptomatic). Last screening mammogram was performed 12 month(s) ago. Patient History: Menarche at age 11. First Full-Term at age 21. Postmenopausal. Currently using Estrogen, beginning at age 52 for 4 years. 04/16/2019, Benign Core Biopsy on the right side. Mother had breast cancer, age 50. Risk Values: Betty 5 year model risk: 2.4%. NCI Lifetime model risk: 10.5%. Prior Study Comparison: 10/26/2021 Bilateral Screening Mammogram, [facility]. 11/15/2022 Bilateral MG 3D screening mammo w/cad, [facility]. 01/08/2024 Bilateral MG 3D screening mammo w/cad, [facility]. Tissue Density: The breasts are heterogeneously dense, which may obscure small masses. Findings: Analyzed By CAD. Right breast biopsy clip. Right breast: There is no suspicious group of microcalcifications or new suspicious mass. Left breast: There is no suspicious group of microcalcifications or new suspicious mass. Overall Assessment: Negative, BI-RAD 1 Management: Screening Mammogram of both breasts in [address] [facility] will attempt to contact patient to return for supplemental views and ultrasound if indicated. Patient should continue monthly self-breast exams. A clinical breast exam by your physician is recommended on an annual basis. This exam should not preclude additional follow-up of suspicious palpable abnormalities. Note on Betty scores and lifetime risk: 1. A Btety score greater than 3% is considered moderate risk. If this is the case, consider specialist referral to assess eligibility for a risk reducing agent. 2. If overall lifetime risk for the development of breast cancer is 20% or higher, the patient may qualify for future screening with alternating mammogram and breast MRI. [facility], , 01/10/2025 11:31 AM. Electronically signed and approved by: Rajendra Matthew DO
== END | disposition home or self-care (01) ==
LOC: RADMAMWWP 09:59
PROVIDERS: ATTEND Obstetrics & Gynecology
DX: Z12.31 Encounter for screening mammogram for malignant neoplasm of breast (principal); R92.333 Mammographic heterogeneous density, bilateral breasts; Z78.0 Asymptomatic menopausal state; Z80.3 Family history of malignant neoplasm of breast
CPT/HCPCS: 77063; 77067